=== PATIENT | male | born 1950 | race Caucasian/White ===

== ENCOUNTER 2024-10-09 11:35 | Inpatient (IN) | payer MEDICARE, MEDICAID, SELFPAY ==
[2024-10-09] VITALS (14 sets, daily range): BP systolic 74–132; BP diastolic 46–84; PULSE 57–99; RESP 13–96; TEMP 32.6–37.3; O2SAT 94–98; BMI 18.6
--- NOTE | 2024-10-09 12:09 | EKG_ITS ---
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
--- NOTE | 2024-10-09 12:10 | XR_ITS ---
Examination: AP chest single view Technique one AP portable upright chest single view INDICATIONS: Sepsis today. FINDINGS: Mild to moderate elevation left hemidiaphragm Mild prominence left ventricle Probable atelectasis in the left lower lobe Right lung clear Prominent thoracolumbar dextroscoliosis IMPRESSION: Recommend lateral view follow-up to best exclude pneumonia left base
--- NOTE | 2024-10-09 12:10 | PD.EDADULT ---
ED General RME/HPI General Chief complaint: Medical Clearance Stated complaint: Unable to thrive, No food, drink x 72 hours, PCP Time Seen by Provider: 10/09/24 11:40 Arrival date/time: 10/09/24 11:35 RME / HPI RME / HPI narrative: 74-year-old male patient, nonverbal, with profound mental retardation, seizure disorder, was brought in by caregiver for evaluation regarding less active than usual. According to caregiver, patient's been having worsening mentation, worsening appetite, and refusing to drink. This been ongoing for the last 1 week. Patient was noted to be unusually cold than usual also. No fever. No cough no diarrhea no vomiting noted. Related Data Home Medications ?Medication ?Instructions ?Recorded ?Confirmed buspirone 15 mg tablet 15 mg PO TID 05/04/22 05/04/22 calcium 600 mg (as 1 tab PO BID 05/04/22 05/04/22 carbonate)-vitamin D3 10 mcg (400 unit) tablet docusate sodium 250 mg capsule 250 mg PO BID 05/04/22 05/04/22 fluvoxamine 100 mg tablet 100 mg PO BID 05/04/22 05/04/22 levocetirizine 5 mg tablet 5 mg PO HS 05/04/22 05/04/22 olanzapine 10 mg tablet 10 mg PO QDAY 05/04/22 05/04/22 omeprazole 20 mg capsule,delayed 20 mg PO QDAY 05/04/22 05/04/22 release Allergies Allergy/AdvReac Type Severity Reaction Status Date / Time No Known Allergies Allergy Verified 12/06/23 16:31 Review of Systems Review of Systems Narrative Review of Systems: Review of system reviewed and within normal limits except mentioned in HPI ED Exam Narrative Physical exam: VITAL SIGNS: Reviewed. GENERAL APPEARANCE: Drowsy, does not follows commands, no acute distress, HEAD AND FACE: Non-traumatic. ENT: PERRL, pink conjunctivitis, eyelid no trauma, Mucous membrane moist. NECK: Supple, nontender, no nuchal rigidity. CHEST: No tenderness, no crepitus, no paradoxical movement, no retractions. LUNGS: Clear, well ventilated, symmetric, no rales, no wheezing, no ronchi, no stridor, good breath sounds bilaterally. HEART: Regular rate, regular rhythm, no murmur, no gallops. ABDOMEN: Soft, positive bowel sounds, nondistended, no guarding, nontender, no rebound, no masses, RECTAL: Deferred. GENITAL: Deferred. NEUROLOGICAL: Gross motor function intact sensory function intact, Appropriate for age. MUSCULOSKELETAL: low back nontender, full range of motion. EXTREMITIES: Nontender, full range of motion. SKIN: Color pink, dry, no rash, no lacerations, no abrasions, no contusions. LYMPHATICS: Deferred. Course Quality Measures none Orders Category Date Time Status COVID-19 Screening Questionnaire NOW Care 10/09/24 19:41 Active Slitter Processed Film STAT Care 10/09/24 12:09 Active Continuous Pulse Oximetry STAT Care 10/09/24 12:09 Completed Decision to Admit X1 Care 10/09/24 19:41 Active EKG (ED ONLY) *Do not use* NOW Care 10/09/24 12:09 Completed In and Out Catheter X1PRN Care 10/09/24 12:09 Completed Insert IV NOW Care 10/09/24 12:09 Active NPO STAT Care 10/09/24 12:09 Active Strict Intake and Output Routine Care 10/09/24 12:09 Ordered Consult to Gastroenterology Stat Cons 10/09/24 17:[address] head/brain wo con Stat Exams 10/09/24 12:14 Completed EKG (ED Only) Stat Exams 10/09/24 12:09 Draft XR chest 1V SEPSIS PROTOCOL Stat Exams 10/09/24 12:10 Completed B-Type Natriuretic Peptide Stat Lab 10/09/24 12:56 Completed Blood Culture (Lab) Stat Lab 10/09/24 12:50 Received CBC Stat Lab 10/09/24 12:56 Completed Comprehensive Metabolic Panel Stat Lab 10/09/24 12:56 Completed LDH (Lactate Dehydrogenase) Stat Lab 10/09/24 12:56 Completed Lactate (Lactic Acid) Stat Lab 10/09/24 12:56 Completed Lipase Stat Lab 10/09/24 12:56 Completed Magnesium Stat Lab 10/09/24 12:56 Completed Partial Thromboplastin Time Stat Lab 10/09/24 12:56 Completed Phosphorous Stat Lab 10/09/24 12:56 Completed Procalcitonin Stat Lab 10/09/24 12:56 Completed Prothrombin Time with INR Stat Lab 10/09/24 12:56 Completed Troponin I Stat Lab 10/09/24 12:56 Completed Urinalysis Stat Lab 10/09/24 14:08 Completed Urine Culture Stat Lab 10/09/24 14:08 Received Sodium Chloride 0.9% 1000 ml [Ns] 1,000 ml Med 10/09/24 12:10 Discontinued IV 999 mls/hr Sodium Chloride 0.9% 1000 ml [Ns] 1,000 ml Med 10/09/24 18:45 Discontinued IV 999 mls/hr cefTRIAXone/D5w 1gm IV premix [Rocephin/D5w 1gm IV Med 10/09/24 18:44 Discontinued premix] 50 ml IV X1 Oxygen Delivery NOW RT 10/09/24 12:09 Active Vital Signs Vital signs: Vital Signs Pulse Rate 63 10/09/24 11:58 Respiratory Rate 17 10/09/24 11:58 Blood Pressure 132/84 H 10/09/24 11:58 Pulse Oximetry (%) 98 10/09/24 11:58 Oxygen Delivery Method Room Air 10/09/24 11:58 [facility] Patient data External records reviewed:: None Clinical information provided by:: bilingual instructor Social determinants that could affect healthcare access:: none Patient has the following chronic illnesses:: Profound mental retardation How is presenting disease/condition affected by chronic disease/condition?: exacerbated by Evaluation data The following diagnostics were reviewed and interpreted by me:: lab results, radiology exam(s) and EKG tracing(s) Lab and/or radiology exams considered but not ordered:: None Interpretation Summary: EKG showed sinus rhythm, ventricular of 60 bpm, NC interval 154 MS, no ST segment elevation depression noted. Laboratory workup is significant for mild UTI. Chest x-ray showed possible pneumonia as read by radiologist. 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, the mass extends through the posterior margin of the orbit into the left parasellar region at the base of the brain, there is more bone destruction involving the medial wall of the left orbit on the current study Elective brain MRI follow-up pre and postcontrast would best assess full extent of this tumor mass Medications Medications considered but not ordered:: None Medication administrations:: Medication Administration History Discontinued Medications Sodium Chloride (Ns) 1,000 mls @ 999 mls/hr IV .Q1H1M ONE Stop: 10/09/24 13:10 Last Infusion: 11/14/24 18:45 Dose: Infused Documented By: Admin: 10/09/24 13:30 Dose: 999 mls/hr Documented By: JOSE G Ceftriaxone Sodium/Dextrose (Rocephin/D5w 1gm Iv Premix) 50 mls @ 100 mls/hr IV X1 ONE Stop: 10/09/24 19:13 Last Admin: 10/09/24 19:20 Dose: 100 mls/hr Documented By: SILVA Sodium Chloride (Ns) 1,000 mls @ 999 mls/hr IV .Q1H1M ONE Stop: 10/09/24 19:45 Last Admin: 10/09/24 19:20 Dose: 999 mls/hr Documented By: SILVA Ceftriaxone IV, IV fluids for hydration x 2 L. Consultations Consultation(s) initiated? (list below): Yes Consultation #1 (Physician, Specialty, Details): Spoke with Dr. Evans, GI specialist on-call, and thank you Dr. Evans Diagnosis Differential Diagnosis ED Complaint MDM: Failure to thrive, profound mental retardation, hypothermia, pneumonia, UTI Most likely diagnosis given after review of the tests above:: Failure to thrive, profound mental retardation, hypothermia, pneumonia, UTI Admission Indicated Admission indicated?: indicated Explain why admission is indicated or not indicated:: Patient is to be admitted for further management. Admission Request Was there a request for admission?: Yes Admission Attestation Admission request attestation: Discussed case with [Dr. Butler] from Hospitalist service regarding admission. Discussed patients ED course, exam findings, labs, and radiology results. The Hospitalist [agrees,] to accept the patient for admission. Disposition Plan Disposition Plan: Admit Medical Decision Making MDM Narrative MDM Narrative: 74-year-old male patient, nonverbal, with profound mental retardation, seizure disorder, was brought in by caregiver for evaluation regarding less active than usual. According to caregiver, patient's been having worsening mentation, worsening appetite, and refusing to drink. This been ongoing for the last 1 week. Patient was noted to be unusually cold than usual also. No fever. No cough no diarrhea no vomiting noted. Patient's workup all came back unremarkable except for mild UTI. Chest x-ray showed possible pneumonia as read by radiologist. Patient was also noted to be hypothermic, was placed on a Bear hugger, and warmed IV fluids. Spoke with Dr. Evans, GI specialist on-call, and told me that he will place PEG tube in the morning. As long as we have a consent problems [facility] Dr. Koenig from [facility] gave consent to do PEG tube placement, central line placement, and blood transfusion at 1650 pm Differential Diagnosis Differential Diagnosis: Failure to thrive, profound mental retardation, hypothermia, pneumonia, UTI Lab Data 10/09/24 12:56 10/09/24 12:56 Labs: Lab Results 10/09/24 10/09/24 Range/Units 12:56 14:08 WBC 8.1 (3.8-10.6) Thou/mm3 RBC 4.64 (4.50-5.90) Miln/mm3 Hgb 14.0 (13.5-16.0) g/dL Hct 39.7 L (41.0-53.0) % MCV 86 (80-100) fL MCH 30.2 (25.0-35.0) pg MCHC 35.3 (31.0-37.0) g/dl RDW Std Deviation 41.4 (35.1-43.9) fL Plt Count 161 (140-440) Thou/mm3 Neut % (Auto) 89 H (37-80) % Lymph % (Auto) 4 L (10-50) % [place] % (Auto) 6 (0-12) % Eos % (Auto) 1 (0-10) % Baso % (Auto) 0 (0-2.5) % Neut # (Auto) 7.2 (1.8-7.7) Thou/mm3 Lymph # (Auto) 0.3 L (1.0-4.8) Thou/mm3 [place] # (Auto) 0.5 (0.0-0.8) Thou/mm3 Eos # (Auto) 0.1 (0.0-0.5) Thou/mm3 Baso # (Auto) 0.0 (0.0-0.2) Thou/mm3 Immature Gran # (Auto) 0.01 H (0.00-0.00) Thou/mm3 Absolute Nucleated RBC 0.00 (0.00-0.00) Thou/mm3 Immature Gran % 0 (0-0) % Nucleated RBC % 0 (0) /100 WBC PT 10.8 (9.0-12.2) Seconds INR 1.0 (0.9-1.3) APTT 32.0 (22.0-36.0) Seconds Sodium 129 L (136-145) mMol/L Potassium 4.2 (3.4-5.1) mMol/L Chloride 94 L (98-107) mMol/L Carbon Dioxide 32.0 H (20.0-31.0) mMol/L Anion Gap 3 L (7-16) BUN 20 (9-23) mg/dL Creatinine 1.0 (0.6-1.3) mg/dL Estim Creat Clear Calc 37.1 L (>60) mL/min eGFR > 60 (60 - ) See Note BUN/Creatinine Ratio 20 (12-20) Ratio Glucose 128 H (74-106) mg/dL Calculated Osmolality 263 L (275-295) Lactic Acid 1.3 (0.4-2.0) mMol/L Calcium 10.7 H (8.3-10.6) mg/dL Corrected Calcium 10.7 H (8.5-10.1) mg/dL Phosphorus 4.6 (2.4-5.1) mg/dL Magnesium 2.3 (1.6-2.6) mg/dL Total Bilirubin 0.4 (0.3-1.2) mg/dL AST 38 H (0-34) U/L ALT 63 H (10-49) U/L Alkaline Phosphatase 147 H (46-116) U/L Lactate Dehydrogenase 176 (120-246) U/L Troponin I < 0.020 (0.0-0.045) ng/mL B-Natriuretic Peptide < 20 (0-100) pg/mL Total Protein 6.6 (5.7-8.2) gm/dL Albumin 4.3 (3.4-4.8) gm/dL Globulin 2.3 (2.3-3.5) gm/dL Albumin/Globulin Ratio 1.9 (1.2-2.2) Lipase 30 (12-53) U/L Procalcitonin 0.12 (0.0-0.49) ng/ml Ur Collection Type Clean Catch Urine Color Yellow (Lt Yel-Yel) Urine Clarity Clear (Clear/Hazy) Urine pH 6.5 (5.0-7.0) Ur Specific [employer] 1.014 (1.001-1.035) Urine Protein Negative (Neg - Trace) Urine Glucose (UA) Negative (Negative) Urine Ketones Negative (Negative) Urine Blood Negative (Negative) Urine Nitrite Negative (Negative) Urine Bilirubin Negative (Negative) Urine Urobilinogen (Auto) Negative (0.0-1.0) mg/dL Ur Leukocyte Esterase Positive (Negative) Urine RBC 7 H (0-3) /hpf Urine WBC 6 H (0-5) /hpf Ur Squamous Epith Cells 0 (0-5) /hpf Urine Bacteria None (None) Hyaline Casts < 1 (0-1) /hpf Discharge Plan Plan Patient Disposition: HOME (Self Care) Disposition Comment: Stable Prescriptions/Referrals Prescriptions/Med Rec: No Action olanzapine 10 mg tablet 10 mg PO QDAY Patient Comments: TAKE ONE TABLET BY MOUTH DAILY AT 0800 fluvoxamine 100 mg tablet 100 mg PO BID omeprazole 20 mg capsule,delayed release(DR/EC) 20 mg PO QDAY docusate sodium 250 mg capsule 250 mg PO BID buspirone 15 mg tablet 15 mg PO TID calcium carbonate-vitamin D3 600 mg-10 mcg (400 unit) tablet 1 tab PO BID levocetirizine 5 mg tablet 5 mg PO HS Referrals: Dionte No MD [Primary Care Provider] - In 1 week Problem List Clinical Impression: Adult failure to thrive Patient/Caregiver Discharge Instructions Print Language: Kiswahili Stand Alone Forms: [facility] Award Info., Patient Portal Info Letter
--- NOTE | 2024-10-09 12:14 | XR_ITS ---
Examination: CT brain head without contrast. 2-D sagittal coronal reconstructions Date and time of exam:October 09, 2024 1331 hours Comparison December 06, 2023 INDICATIONS: Onset altered mental status CTDI: vol (mGy):51.4 DLP: (mGycm):1097 Technique: Multiple CT axial sections of the brain have been obtained, 5 mm slice thickness. Contrast has not been administered. 2-D sagittal, coronal reconstructions have been obtained Low dose protocols were performed. One or more of the following dose reduction techniques were used; automated exposure control, adjustment of the mA and/or KV according to patient size, use of iterative reconstruction technique. Findings: Stable ventricular enlargement, especially the occipital horns, compared with December 06, 2023 Intra-axial or extra-axial hemorrhage density is not seen. 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
[2024-10-09 13:03] LABS: Lactate (Lactic Acid) 1.3 mMol/L (0.4-2.0)
[2024-10-09 13:05] LABS: Basophils % (Auto) 0 % (0-2.5); Eosinophils # (Auto) 0.1 Thou/mm3 (0.0-0.5); Eosinophils % (Auto) 1 % (0-10); Hematocrit 39.7 % (41.0-53.0); Immature Granulocytes % (Auto) 0 % (0-0); Immature Granulocytes Auto 0.01 Thou/mm3 (0.00-0.00); Lymphocytes # (Auto) 0.3 Thou/mm3 (1.0-4.8); Lymphocytes % (Auto) 4 % (10-50); Mean Corpuscular HGB Conc 35.3 g/dl (31.0-37.0); Mean Corpuscular Hemoglobin 30.2 pg (25.0-35.0); Mean Corpuscular Volume 86 fL (80-100); Monocytes # (Auto) 0.5 Thou/mm3 (0.0-0.8); Monocytes % (Auto) 6 % (0-12); Neutrophils # (Auto) 7.2 Thou/mm3 (1.8-7.7); Neutrophils % (Auto) 89 % (37-80); Nucleated Red Blood Cell % 0 /100 WBC (0); Platelet Count 161 Thou/mm3 (140-440); RDW Standard Deviation 41.4 fL (35.1-43.9); Red Blood Count 4.64 Miln/mm3 (4.50-5.90); White Blood Count 8.1 Thou/mm3 (3.8-10.6)
[2024-10-09 13:24] LABS: Prothrombin Time 10.8 Seconds (9.0-12.2)
[2024-10-09 13:28] LABS: B-Type Natriuretic Peptide < 20 pg/mL (0-100)
[2024-10-09] MEDS: SODIUM CHLORIDE 0.9% 1000 ML 1,000 ML 999 ML IV ×2 (13:30→19:20)
[2024-10-09 13:32] LABS: Alanine Aminotransferase 63 U/L (10-49); Albumin, Serum 4.3 gm/dL (3.4-4.8); Albumin/Globulin Ratio 1.9 (1.2-2.2); Alkaline Phosphatase 147 U/L (46-116); Anion Gap 3 (7-16); Aspartate Amino Transferase 38 U/L (0-34); BUN/Creatinine Ratio 20 Ratio (12-20); Bilirubin,Total 0.4 mg/dL (0.3-1.2); Blood Urea Nitrogen 20 mg/dL (9-23); Calcium 10.7 mg/dL (8.3-10.6); Calcium (Corrected) 10.7 mg/dL (8.5-10.1); Chloride 94 mMol/L (98-107); Estimated Creatinine Clearance 37.1 mL/min (>60); Globulin 2.3 gm/dL (2.3-3.5); Glucose 128 mg/dL (74-106); LDH (Lactate Dehydrogenase) 176 U/L (120-246); Lipase 30 U/L (12-53); Magnesium 2.3 mg/dL (1.6-2.6); Osmolality,Calculated 263 (275-295); Phosphorous 4.6 mg/dL (2.4-5.1); Potassium 4.2 mMol/L (3.4-5.1); Procalcitonin 0.12 ng/ml (0.0-0.49); Sodium 129 mMol/L (136-145); Total Protein 6.6 gm/dL (5.7-8.2); Troponin I < 0.020 ng/mL (0.0-0.045); eGFR > 60 See Note
[2024-10-09 14:48] LABS: Collection Type, Urine Clean Catch; Squamous Epithelial Cell,Urine 0 /hpf (0-5)
[2024-10-09 14:58] LABS: Bilirubin,Urine Negative (Negative); Blood,Urine Negative (Negative); Clarity,Urine Clear (Clear/Hazy); Color,Urine Yellow (Lt Yel-Yel); Glucose, Urine Negative (Negative); Hyaline Casts,Urine < 1 /hpf (0-1); Ketones,Urine Negative (Negative); Leukocyte Esterase,Urine Positive (Negative); Nitrite,Urine Negative (Negative); PH,Urine 6.5 (5.0-7.0); Protein,Urine Negative (Neg - Trace); RBC,Urine 7 /hpf (0-3); Specific Gravity,Urine 1.014 (1.001-1.035); Urobilinogen,Urine Negative mg/dL (0.0-1.0); WBC,Urine 6 /hpf (0-5)
[2024-10-09] MEDS: cefTRIAXone/D5w 1gm IV premix 50 ML IV (19:20)
--- NOTE | 2024-10-09 20:41 | PD.RESHP ---
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 intake and feeling cool to touch. He comes from [facility] for which he has been a resident of for over 20 years. Real Estate Valuer was at bedside who helped provide information, Tfifanie Garza ([phone]). At baseline, patient is unable to communicate his needs. For some time he has had decreased PO intake, but has progressed significantly starting Sunday. Real Estate Valuer states that he has become weaker over time, stating that he is unable to walk which she was able to prior and has had a 10 pound weight loss within the last year. 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 Dr. Koenig at [facility] who gave verbal consent for PEG tube placement, and will need to acquire faxed consent prior to procedure. Dr. Evans is aware and plans to place tube in AM. ED course: Temp 90.6 ?F, improved with Juan Hugger and warm IV fluids to 92.5 ?F. Otherwise, vital stable. CBC unremarkable, Na 129, mildly elevated LFTs, troponin (-), BNP (-), lactic acid (-), Pro-Herman (-), UA unremarkable CXR: Possible atelectasis of left lower lobe CT head: Stable ventricular enlargement, soft tissue tumor in left orbit extending into left parasellar region at base of brain In ED given 2 L warm NS, ceftriaxone x 1 PMHx: seizures, intellectual disability Medications: Pending med rec SHx: N/A Review of Systems Review of Systems Systems Reviewed: All systems reviewed, normal except as documented Exam Vital Signs Temp Pulse Resp BP Pulse Ox O2 Del Method 91.5 F L 64 13 99/56 L 98 Room Air 10/09/24 19:37 10/09/24 19:47 10/09/24 19:47 10/09/24 19:37 10/09/24 19:37 10/09/24 19:37 Narrative Exam General: nonverbal, laying in bed and does not appear to be in distress HEENT: soft tissue tumor in left orbit Cardiovascular: regular rate and rhythm, S1/S2 present, no murmurs appreciated Pulmonary: clear to auscultation bilaterally, no rales/rhonchi/wheezes Abdominal: soft, non-tender, non-distended, no rebound/guarding, normal bowel sounds present Musculoskeletal: normal ROM, no peripheral edema Skin: cool to touch, dry, intact, no rashes Neuro: CN II-XII intact, no focal deficits Results: Labs 10/12/24 05:42 10/12/24 05:42 Labs: Short CBC 10/09/24 Range/Units 12:56 WBC 8.1 (3.8-10.6) Thou/mm3 Hgb 14.0 (13.5-16.0) g/dL Hct 39.7 L (41.0-53.0) % Plt Count 161 (140-440) Thou/mm3 BMP 10/09/24 12:56 Sodium 129 L Potassium 4.2 Chloride 94 L Carbon Dioxide 32.0 H BUN 20 Creatinine 1.0 Glucose 128 H Calcium 10.7 H Cardiac Enzymes 10/09/24 Range/Units 12:56 Troponin I < 0.020 (0.0-0.045) ng/mL Liver Function 10/09/24 Range/Units 12:56 Total Bilirubin 0.4 (0.3-1.2) mg/dL AST 38 H (0-34) U/L ALT 63 H (10-49) U/L Alkaline Phosphatase 147 H (46-116) U/L Albumin 4.3 (3.4-4.8) gm/dL Urine 10/09/24 Range/Units 14:08 Urine Color Yellow (Lt Yel-Yel) Urine Clarity Clear (Clear/Hazy) Urine pH 6.5 (5.0-7.0) Ur Specific [place] 1.014 (1.001-1.035) Urine Protein Negative (Neg - Trace) Urine Glucose (UA) Negative (Negative) Quality Measures Quality Measures none Advance care planning discussed with:: legal surragate Medications Home Medications and Allergies Home Medications ?Medication ?Instructions ?Recorded ?Confirmed ?Type buspirone 15 mg tablet 15 mg PO TID 05/04/22 05/04/22 History calcium 600 mg (as 1 tab PO BID 05/04/22 05/04/22 History carbonate)-vitamin D3 10 mcg (400 unit) tablet docusate sodium 250 mg capsule 250 mg PO BID 05/04/22 05/04/22 History fluvoxamine 100 mg tablet 100 mg PO BID 05/04/22 05/04/22 History levocetirizine 5 mg tablet 5 mg PO HS 05/04/22 05/04/22 History olanzapine 10 mg tablet 10 mg PO QDAY 05/04/22 05/04/22 History omeprazole 20 mg capsule,delayed 20 mg PO QDAY 05/04/22 10/10/24 History release fluvoxamine 100 mg tablet mg 10/10/24 History melatonin 5 mg tablet 5 mg PO HS PRN Insomnia 10/10/24 10/10/24 History multivitamin with minerals-iron ml PO 10/10/24 History fumarate 9 mg iron/15 mL oral liquid (Multi Vitamin) omeprazole 20 mg capsule,delayed mg 10/10/24 History release polyethylene glycol 3350 17 g 10/10/24 History gram/dose oral powder polyethylene glycol 3350 17 g 10/10/24 History gram/dose oral powder polyethylene glycol 3350 17 g 10/10/24 History gram/dose oral powder (ClearLax) triamcinolone acetonide 0.1 % topical 10/10/24 History topical ointment Allergies Allergy/AdvReac Type Severity Reaction Status Date / Time No Known Allergies Allergy Verified 12/06/23 16:31 Visit Medications Acetaminophen (Acetaminophen Supp 650 Mg Supp) 650 mg KS Q6HR PRN PRN Reason: Fever > 100.4 Stop: 11/08/24 20:34 Heparin Sodium (Porcine) (Heparin Sod Inj 5000 Unit/Ml Vial) 5,000 unit SC Q12HR PHYLICIA Stop: 10/23/24 20:59 Sodium Chloride (Ns) 1,000 mls @ 75 mls/hr IV .[id number] PHYLICIA Stop: 10/10/24 20:44 Piperacillin/Tazobactam/Dextrose (Zosyn) 3.375 gm in 50 mls @ 100 mls/hr IV Q8HR PHYLICIA Stop: 10/16/24 20:39 Ondansetron HCl (Ondansetron Inj 2 Mg/Ml Inj 2 Ml) 4 mg IV Q6H PRN; Protocol PRN Reason: NAUSEA OR VOMITING Stop: 11/08/24 20:36 Pantoprazole Sodium (Pantoprazole Inj 40 Mg Vial) 40 mg IVP Q12HR PHYLICIA Stop: 11/08/24 20:59 Discontinued Medications Sodium Chloride (Ns) 1,000 mls @ 999 mls/hr IV .Q1H1M ONE Stop: 10/09/24 13:10 Last Infusion: 10/09/24 18:45 Dose: Infused Ceftriaxone Sodium/Dextrose (Rocephin/D5w 1gm Iv Premix) 50 mls @ 100 mls/hr IV X1 ONE Stop: 10/09/24 19:13 Last Infusion: 10/09/24 20:36 Dose: Infused Sodium Chloride (Ns) 1,000 mls @ 999 mls/hr IV .Q1H1M ONE Stop: 10/09/24 19:45 Last Admin: 10/09/24 19:20 Dose: 999 mls/hr Assessment & Plan Plan 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 #Failure to thrive #Hypothermia Presents with significantly decreased p.o. intake for the last week. Has become less interactive per sprayer insecticide and is cool to touch. Difficult to ascertain etiologies given patient's inability to communicate. Symptoms likely due to significantly decreased p.o. intake, unlikely infectious etiology but cannot definitely be ruled out. Consider hypothyroidism, follow-up TSH levels. ? Juan hugger ? Warm IV fluids ? Continuous rectal thermometer ? Monitor vital signs ? Consider ICU consult if no improvement ? Planned PEG tube placement tomorrow morning ? Follow-up blood and urine cultures # ? Pneumonia Presents nonseptic. CXR read recommended lateral view follow-up to best exclude pneumonia left base, but unable as patient cannot be transported. ? Zosyn 3.375 g IV every 8 hours ? De-escalate as deemed necessary #Hypotonic hyponatremia ? IVF as above Hospital management: Disposition: 2-3 hospital nights Fluids: warmed IVF Diet: NPO, pending PEG tube placement Lines: peripheral DVT prophylaxis: heparin SC BID GI prophylaxis: pantoprazole IV BID CODE STATUS: full code ----- Plan discussed with attending physician Dr. Ross Salazar MD PGY-1 Internal Medicine Attending Provider Attestation/Addendum 74-year-old male patient with severe mental impairment, seizures was admitted for failure to thrive. The patient is noted to be hypothermic in the ER. He has hyponatremia. Patient is conserved. The patient will undergo PEG tube placement by Dr. Evans. He was started on IV antibiotics for possible pneumonia. Discussed with housestaff
[2024-10-09] MEDS: HEPARIN SOD INJ 5000 UNIT/ML VIAL SC (20:51)
[2024-10-09] MEDS: PANTOPRAZOLE INJ 40 MG VIAL IVP (20:51)
[2024-10-09] MEDS: PIPER/TAZO 3.375 GM 3.375 GM/50 ML BAG IV (20:51)
[2024-10-09] MEDS: SODIUM CHLORIDE 0.9% 1000 ML 1,000 ML 75 ML IV (20:52)
--- NOTE | 2024-10-09 21:15 | XR_ITS ---
Examination: AP chest single view Technique: AP portable supine chest single view Exam date and time: October 09, [id number] hrs. Comparison May 04, 2022 Indications: Failure to thrive Findings: Prominent pneumonia left base Normal heart size No pulmonary edema Intact osseous structures Impression: Significant pneumonia left base
--- NOTE | 2024-10-09 22:02 | ESCONSULT_ITS ---
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 cc:: cc: Darrian Hawkins MD Review of Systems Review of Systems ROS Unobtainable: unobtainable due to medical condition Meds Home Medications and Allergies Home Medications ?Medication ?Instructions ?Recorded ?Confirmed ?Type buspirone 15 mg tablet 15 mg PO TID 05/04/22 05/04/22 History calcium 600 mg (as 1 tab PO BID 05/04/22 05/04/22 History carbonate)-vitamin D3 10 mcg (400 unit) tablet docusate sodium 250 mg capsule 250 mg PO BID 05/04/22 05/04/22 History fluvoxamine 100 mg tablet 100 mg PO BID 05/04/22 05/04/22 History levocetirizine 5 mg tablet 5 mg PO HS 05/04/22 05/04/22 History olanzapine 10 mg tablet 10 mg PO QDAY 05/04/22 05/04/22 History omeprazole 20 mg capsule,delayed 20 mg PO QDAY 05/04/22 05/04/22 History release Allergies Allergy/AdvReac Type Severity Reaction Status Date / Time No Known Allergies Allergy Verified 12/06/23 16:31 Exam Vital Signs Temp Pulse Resp BP Pulse Ox O2 Del Method 91.5 F L 64 13 99/56 L 98 Room Air 10/09/24 19:37 10/09/24 19:47 10/09/24 19:47 10/09/24 19:37 10/09/24 19:37 10/09/24 19:37 Constitutional Comments: Chronically ill-appearing Routine Respiratory Exam Comments: Soft nontender. Results Labs 10/09/24 12:56 10/09/24 12:56 Labs: Short CBC 10/09/24 Range/Units 12:56 WBC 8.1 (3.8-10.6) Thou/mm3 Hgb 14.0 (13.5-16.0) g/dL Hct 39.7 L (41.0-53.0) % Plt Count 161 (140-440) Thou/mm3 BMP 10/09/24 12:56 Sodium 129 L Potassium 4.2 Chloride 94 L Carbon Dioxide 32.0 H BUN 20 Creatinine 1.0 Glucose 128 H Calcium 10.7 H Cardiac Enzymes 10/09/24 Range/Units 12:56 Troponin I < 0.020 (0.0-0.045) ng/mL Liver Function 10/09/24 Range/Units 12:56 Total Bilirubin 0.4 (0.3-1.2) mg/dL AST 38 H (0-34) U/L ALT 63 H (10-49) U/L Alkaline Phosphatase 147 H (46-116) U/L Albumin 4.3 (3.4-4.8) gm/dL Urine 10/09/24 Range/Units 14:08 Urine Color Yellow (Lt Yel-Yel) Urine Clarity Clear (Clear/Hazy) Urine pH 6.5 (5.0-7.0) Ur Specific [place] 1.014 (1.001-1.035) Urine Protein Negative (Neg - Trace) Urine Glucose (UA) Negative (Negative) Assessment and Plan Additional Assessment & Plan Additional Plan: # Failure to thrive Patient not eating at all as per the tube cleaning operator Appropriate consent will be obtained from the appropriate authorities for percutaneous endoscopic gastrostomy tube insertion via fiberoptic esophagogastroduodenoscopy under intravenous moderate sedation scheduled for tomorrow N.p.o. 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
--- NOTE | 2024-10-09 23:00 | PC.NURSE ---
SHEBA FLORES REMOVED AND FLUIDS REMOVED FROM ROOMER, PT'S RECTAL TEMP IS 99.1.
[2024-10-10] VITALS (58 sets, daily range): BP systolic 99–157; BP diastolic 65–135; PULSE 52–111; RESP 0–95; TEMP 35.3–37.1; O2SAT 92–99; BMI 17.9
[2024-10-10] MEDS: PIPER/TAZO 3.375 GM 3.375 GM/50 ML BAG IV (05:24)
[2024-10-10 05:35] LABS: Basophils % (Auto) 0 % (0-2.5); Eosinophils % (Auto) 0 % (0-10); Hematocrit 33.9 % (41.0-53.0); Hemoglobin 11.8 g/dL (13.5-16.0); Immature Granulocytes % (Auto) 0 % (0-0); Immature Granulocytes Auto 0.05 Thou/mm3 (0.00-0.00); Lymphocytes # (Auto) 0.2 Thou/mm3 (1.0-4.8); Lymphocytes % (Auto) 2 % (10-50); Mean Corpuscular HGB Conc 34.8 g/dl (31.0-37.0); Mean Corpuscular Hemoglobin 30.1 pg (25.0-35.0); Mean Corpuscular Volume 87 fL (80-100); Monocytes # (Auto) 0.5 Thou/mm3 (0.0-0.8); Monocytes % (Auto) 3 % (0-12); Neutrophils # (Auto) 13.1 Thou/mm3 (1.8-7.7); Neutrophils % (Auto) 94 % (37-80); Nucleated Red Blood Cell % 0 /100 WBC (0); Platelet Count 148 Thou/mm3 (140-440); RDW Standard Deviation 42.9 fL (35.1-43.9); Red Blood Count 3.92 Miln/mm3 (4.50-5.90); White Blood Count 13.9 Thou/mm3 (3.8-10.6)
[2024-10-10 06:13] LABS: Alanine Aminotransferase 52 U/L (10-49); Albumin, Serum 3.6 gm/dL (3.4-4.8); Albumin/Globulin Ratio 1.9 (1.2-2.2); Alkaline Phosphatase 122 U/L (46-116); Anion Gap 6 (7-16); Aspartate Amino Transferase 31 U/L (0-34); BUN/Creatinine Ratio 18 Ratio (12-20); Bilirubin,Total 0.4 mg/dL (0.3-1.2); Blood Urea Nitrogen 16 mg/dL (9-23); Calcium 9.2 mg/dL (8.3-10.6); Calcium (Corrected) 9.5 mg/dL (8.5-10.1); Carbon Dioxide 28.2 mMol/L (20.0-31.0); Chloride 103 mMol/L (98-107); Creatinine (Component) 0.9 mg/dL (0.6-1.3); Estimated Creatinine Clearance 39.6 mL/min (>60); Globulin 1.9 gm/dL (2.3-3.5); Glucose 75 mg/dL (74-106); Magnesium 1.8 mg/dL (1.6-2.6); Osmolality,Calculated 274 (275-295); Phosphorous 4.1 mg/dL (2.4-5.1); Potassium 4.1 mMol/L (3.4-5.1); Sodium 137 mMol/L (136-145); Thyroid Stimulating Hormone 0.94 uIU/mL (0.55-4.78); Total Protein 5.5 gm/dL (5.7-8.2); eGFR > 60 See Note
[2024-10-10] MEDS: HEPARIN SOD INJ 5000 UNIT/ML VIAL SC ×2 (08:43→21:05)
[2024-10-10] MEDS: PANTOPRAZOLE INJ 40 MG VIAL IVP ×2 (08:43→21:00)
--- NOTE | 2024-10-10 08:52 | PC.SS ---
Update: Patient is a possible candidate for PEG placement.
[2024-10-10] MEDS: cefTRIAXone/D5w 1gm IV premix 50 ML IV (09:56)
[2024-10-10] MEDS: Magnesium Sulfate 4 GM Ivpb 4 GM/50 ML BAG IV (09:57)
[2024-10-10] MEDS: SODIUM CHLORIDE 0.9% 1000 ML 1,000 ML 75 ML IV (10:59)
[2024-10-10] MEDS: AZITHROMYCIN INJ 500 MG in SODIUM CHLORIDE 0.9% 250 ML 250 ML 250 MG IV (11:02)
--- NOTE | 2024-10-10 11:59 | PC.SS ---
Patient is devel. delayed and non verbal. He is wheelchair bound and resides at [facility]. He has 24 hour care staffing. He has a sister in law that is involved but does not make any decisions. SS spoke to [employer] [place] senator, Tiffanie Galvan, who states [facility] makes all major healthcare decisions. Patient is total care with all ADL's. He is blind, needs assistance with all transfers, non verbal and staff state he has a tendency to pinch himself. [facility] transports him with thier own van with a lift. Patient pending peg tube surgery. [facility] u[employer] senator was asking for a peg tube with no tubes hanging out, to prevent patient from pulling. SS relayed to nursing. Patient p.c.p. is Dr. No @ [facility]. Last appt. was on the 30 of September. Patient to d/c back to [facility].
--- NOTE | 2024-10-10 12:38 | ESPR_ITS ---
<Statement entered by Lindy Flores MD - 10/10/24 16:53> Senior Resident Attestation: I supervised/discussed management plan with resident physician Dr. Alcaraz, and was involved in the care of this patient. I personally saw and examined the patient and discussed the assessment and plan with the entire medicine team, including my attending. I agree with the assessment and plan as documented. Patient's care was discussed with attending physician, Dr. Shabbir Flores MD PGY-3 Documentation for date of: 10/10/24 Subjective Subjective Interval history: Patient seen at bedside. Consent obtained from conservator for PEG tube placement tonight. Patient is scheduled for PEG tube placement. Patient is nonverbal, sleeping comfortably in bed, temperature within normal limit. Will continue to monitor patient. Exam Vital Signs Temp Pulse Resp BP Pulse Ox O2 Del Method 96.1 F L 87 18 107/82 96 Room Air 10/10/24 08:00 10/10/24 08:00 10/10/24 08:00 10/10/24 08:00 10/10/24 08:00 10/10/24 08:00 Narrative Exam General: nonverbal, laying in bed and does not appear to be in distress HEENT: soft tissue tumor in left orbit Cardiovascular: regular rate and rhythm, S1/S2 present, no murmurs appreciated Pulmonary: clear to auscultation bilaterally, no rales/rhonchi/wheezes Abdominal: soft, non-tender, non-distended, no rebound/guarding, normal bowel sounds present Musculoskeletal: normal ROM, no peripheral edema Skin: cool to touch, dry, intact, no rashes Neuro: CN II-XII intact, no focal deficits, responds to touch. Objective Labs 10/11/24 05:39 10/11/24 05:39 Labs: Laboratory Results - last 24 hr 10/09/24 10/09/24 10/10/24 12:56 14:08 05:10 WBC 8.1 13.9 H D RBC 4.64 3.92 L Hgb 14.0 11.8 L D Hct 39.7 L 33.9 L MCV 86 87 MCH 30.2 30.1 MCHC 35.3 34.8 RDW Std Deviation 41.4 42.9 Plt Count 161 148 Neut % (Auto) 89 H 94 H Lymph % (Auto) 4 L 2 L [place] % (Auto) 6 3 Eos % (Auto) 1 0 Baso % (Auto) 0 0 Neut # (Auto) 7.2 13.1 H Lymph # (Auto) 0.3 L 0.2 L [place] # (Auto) 0.5 0.5 Eos # (Auto) 0.1 0.0 Baso # (Auto) 0.0 0.0 Immature Gran # (Auto) 0.01 H 0.05 H Absolute Nucleated RBC 0.00 0.00 Immature Gran % 0 0 Nucleated RBC % 0 0 PT 10.8 INR 1.0 APTT 32.0 Sodium 129 L 137 Potassium 4.2 4.1 Chloride 94 L 103 Carbon Dioxide 32.0 H 28.2 Anion Gap 3 L 6 L BUN 20 16 Creatinine 1.0 0.9 Estim Creat Clear Calc 37.1 L 39.6 L eGFR > 60 > 60 BUN/Creatinine Ratio 20 18 Glucose 128 H 75 D Calculated Osmolality 263 L 274 L Lactic Acid 1.3 Calcium 10.7 H 9.2 D Corrected Calcium 10.7 H 9.5 Phosphorus 4.6 4.1 Magnesium 2.3 1.8 Total Bilirubin 0.4 0.4 AST 38 H 31 ALT 63 H 52 H Alkaline Phosphatase 147 H 122 H D Lactate Dehydrogenase 176 Troponin I < 0.020 B-Natriuretic Peptide < 20 Total Protein 6.6 5.5 L Albumin 4.3 3.6 D Globulin 2.3 1.9 L Albumin/Globulin Ratio 1.9 1.9 Lipase 30 Procalcitonin 0.12 TSH 0.94 Ur Collection Type Clean Catch Urine Color Yellow Urine Clarity Clear Urine pH 6.5 Ur Specific [place] 1.014 Urine Protein Negative Urine Glucose (UA) Negative Urine Ketones Negative Urine Blood Negative Urine Nitrite Negative Urine Bilirubin Negative Urine Urobilinogen (Auto) Negative Ur Leukocyte Esterase Positive Urine RBC 7 H Urine WBC 6 H Ur Squamous Epith Cells 0 Urine Bacteria None Hyaline Casts < 1 Quality Measures Quality Measures none Advance care planning discussed with:: legal surragate Assessment & Plan Assessment Current Active Medications: Generic Name Dose Route Start Last Admin Trade Name Freq PRN Reason Stop Dose Admin Acetaminophen 650 mg 10/09/24 20:35 Acetaminophen Supp 650 Mg Supp TX 11/08/24 20:34 Q6HR PRN Fever > 100.4 Heparin Sodium (Porcine) 5,000 unit 10/09/24 21:00 10/10/24 08:43 Heparin Sod Inj 5000 Unit/Ml Vial SC 10/23/24 20:59 5,000 unit Q12HR PHYLICIA Administration Sodium Chloride 1,000 mls @ 75 mls/hr 10/09/24 20:45 10/10/24 10:59 Ns IV 10/10/24 20:44 75 mls/hr .[id number] PHYLICIA Administration Ceftriaxone Sodium/Dextrose 50 mls @ 100 mls/hr 10/10/24 08:55 10/10/24 09:56 Rocephin/D5w 1gm Iv Premix IV 10/17/24 08:54 100 mls/hr QDAY PHYLICIA Administration Azithromycin 250 mg/ Sodium 250 mls @ 250 mls/hr 10/11/24 09:00 Chloride IV 10/15/24 08:59 QDAY PHYLICIA Magnesium Sulfate 4 gm in 50 mls @ 12.5 mls/hr 10/10/24 08:58 10/10/24 09:57 Magnesium Sulfate Ivpb IV 10/10/24 12:57 12.5 mls/hr X1 ONE Administration Ondansetron HCl 4 mg 10/09/24 20:37 Ondansetron Inj 2 Mg/Ml Inj 2 Ml IV 11/08/24 20:36 Q6H PRN NAUSEA OR VOMITING Protocol Pantoprazole Sodium 40 mg 10/09/24 21:00 10/10/24 08:43 Pantoprazole Inj 40 Mg Vial IVP 11/08/24 20:59 40 mg Q12HR PHYLICIA Administration Pharmacy Consult 1 each 10/10/24 03:48 Pharmacy To Consult Pneumovacc XX 11/09/24 03:47 PRN PRN CONSULT Plan Assessment and Plan: Summary: 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 #Failure to thrive #Protein calorie malnutrition #Hypoproteinemia #Hypothermia # Left orbit soft tissue mass Presents with significantly decreased p.o. intake for the last week. Has become less interactive per inspection engineer and is cool to touch. Difficult to ascertain etiologies given patient's inability to communicate. Symptoms likely due to significantly decreased p.o. intake, unlikely infectious etiology but cannot definitely be ruled out. TSH 0.94. Patient was given 2 L NS school coordinator ED, was in [facility], eventually patient's temperature improved to within normal limits BMI 17.9 Plan: - Consulted GI, patient scheduled for PEG tube placement today - Referral to dietitian ? Monitor vital signs # Sepsis # Pneumonia, CAP vs aspiration -Patient hypothermic, WBC count 13.9, SIRS 2/4 -Patient was given ceftriaxone in ED, was given Zosyn later -CXR read recommended lateral view follow-up to best exclude pneumonia left base, but unable as patient cannot be transported. -Continue ceftriaxone and azithromycin (10/10- ?Follow-up blood and urine cultures # Hypoosmolar hyponatremia, resolved DVT prophylaxis: Heparin every 12 GI prophylaxis: IV Protonix twice daily Diet: N.p.o. Lines: Peripheral IV Code status: Full code Case discussed with Attending Dr. Shea and Dr. Flores PGY3. Zulma Alcaraz PGY1 Attending Provider Attestation/Addendum I have discussed and was present for the essential components of the history, physical examination, diagnosis, and treatment plan with the resident. I agree with the patient's care as documented by the resident and amended herein by me. Leon Shea DO. Although this document has been carefully reviewed, there may still be some phonetic and other typographical errors. These errors are purely grammatical due to imperfections in the software program and should not be construed in any way to compromise the substance of the patient's medical care during this visit.
--- NOTE | 2024-10-10 13:09 | PC.SS ---
QUILTING MACHINE OPERATOR contacted [facility] worker of the day, Debora Neville [phone]; to update on PEG tube placement for the patient. QUILTING MACHINE OPERATOR requested confirmation on which [facility] physician would susanne authorization for procedure. [facility] staff informed that chart review indicates that Dr. Koenig granted verbal permission for PEG tube placement. [facility] staff person to conduct confirmation and will contact QUILTING MACHINE OPERATOR. [facility] staff provided attending contact number if peer to peer discussion required.
--- NOTE | 2024-10-10 14:15 | PC.NURSE ---
@[address] AVILEZ FROM [facility] IN ORDER TO GET CONSENT FOR PEG TUBE PLACEMENT, LEFT MESSAGE TO CALL ME BACK
--- NOTE | 2024-10-10 14:25 | PC.SS ---
SCHOOL LEADER informed that Dr. Shea obtained consent from Dr. Koenig authorizing PEG tube placement for the patient.
--- NOTE | 2024-10-10 15:37 | PC.DIETICIAN ---
Nutrition recommendations: Patient is at significant risk for refeeding syndrome. 1. Jevity 1.5 at 10 ml/hr x 24 hrs (do not advance). If no IV fluids, water flushes 30 ml/hr (or per MD). 2. Thiamine 100mg/day for 7 days; provide first dose at least 30 minutes before starting nutrition. 3. Multivitamins/Minerals. 4. Daily labs for P, K, and Mg; replace as needed. If no electrolytes disturbances after 24 hrs, advance 10 ml every 12 hrs to goal rate of 40 ml/hr x 24 hrs. Continue water flushes 30 ml/hr (or per MD).
[2024-10-10] MEDS: THIAMINE INJ 100 MG/ML VIAL 2 ML 250 MG IV (17:46)
--- NOTE | 2024-10-10 19:51 | PC.NURSE ---
Contacted hospitalist regarding patient's temp of 95.8. Was also contacted by OR team regarding patient's temp. Was unable to obtain a rectal temp and MD was notified. A warming blanket (bear hugger) was put on the patient to help his temp.
[2024-10-10] MEDS: MULTIVITAMIN 15 ML UDC GT (21:01)
--- NOTE | 2024-10-10 23:20 | PC.NURSE ---
Code rapid was initiated on patient due to having a rectal temp of 90.0. Blood sugar was also was obtained (69). Patient is non-verbal.
[2024-10-10] MEDS: DEXTROSE 50%-WATER INJ 50 ML SYRINGE IV ×2 (23:24)
--- NOTE | 2024-10-10 23:31 | XR_ITS ---
Examination: Abdomen AP single view Technique: AP portable supine abdomen, single view Exam date and time: October 10, 2024 1154 hrs. Indications: Sepsis, abdominal pain today Findings: Gastrostomy tube overlies the stomach Significant pneumonia left base Mild to moderate colonic ileus No obstruction The right abdomen is not entirely included on this film Rectal tube Impression: Significant left base pneumonia Mild to moderate colonic ileus
--- NOTE | 2024-10-10 23:43 | PD.RESEVENT ---
Documentation for date of: 10/10/24 Event Note Event Note: Rapid Response Event Note Called at approximately 11:20 PM Rapid Response called for hypothermia of rectal temperature of 90.0 F s/p PEG tube placement. Airway not compromised, breathing rate of 13, SpO2 of 95 RA. Non-verbal. Pulses intact. Vitals during rapid: T 95.6, BP 99/72, HR 56, RR 13, SpO2 95 RA Intervention: CBC, BMP, lactic Acid, NS 1 Liter bolus/WARM, bear hugger, KUB, and warm blankets. Sepsis [place]. [facility] [place] Temp checks Q4 hours. - The patient's plan was discussed with attending Dr. Ross Bland MD PGY1 Internal Medicine
[2024-10-10 23:47] LABS: Lactate (Lactic Acid) 0.6 mMol/L (0.4-2.0)
[2024-10-10 23:52] LABS: Basophils % (Auto) 0 % (0-2.5); Eosinophils # (Auto) 0.1 Thou/mm3 (0.0-0.5); Eosinophils % (Auto) 0 % (0-10); Hematocrit 31.8 % (41.0-53.0); Hemoglobin 11.2 g/dL (13.5-16.0); Immature Granulocytes % (Auto) 0 % (0-0); Immature Granulocytes Auto 0.05 Thou/mm3 (0.00-0.00); Lymphocytes # (Auto) 0.3 Thou/mm3 (1.0-4.8); Lymphocytes % (Auto) 2 % (10-50); Mean Corpuscular HGB Conc 35.2 g/dl (31.0-37.0); Mean Corpuscular Hemoglobin 30.5 pg (25.0-35.0); Mean Corpuscular Volume 87 fL (80-100); Monocytes # (Auto) 0.2 Thou/mm3 (0.0-0.8); Monocytes % (Auto) 2 % (0-12); Neutrophils % (Auto) 96 % (37-80); Nucleated Red Blood Cell % 0 /100 WBC (0); Platelet Count 121 Thou/mm3 (140-440); Red Blood Count 3.67 Miln/mm3 (4.50-5.90); White Blood Count 13.6 Thou/mm3 (3.8-10.6)
[2024-10-11] VITALS (22 sets, daily range): BP systolic 86–124; BP diastolic 51–75; PULSE 58–104; RESP 0–96; TEMP 32.2–37.5; O2SAT 95–99; BMI 19.4
--- NOTE | 2024-10-11 00:05 | ESCONSULT_ITS ---
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 Due to patient is nonverbal at baseline per chart review patient was having approximately 1 week of poor oral intake and decreased temperature to touch and later started to become weaker for which he was brought to the ED for further evaluation. On admission at the ED temperature was 90.6 F that later improved with warm IV fluids and Juan hugger to 92.5 F. 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 Koenig at [facility] gave verbal consent and Mr. Liu was admitted for further treatment and management failure to thrive, hypothermia and community-acquired pneumonia. During hospital stay patient underwent PEG tube placement in the afternoon without any complications during procedure around 23:20 rapid response was called due to hypothermia. Vitals BP: 105/75 HR: 58 RR: 12 T: 90F SpO2 97% on room air. Per night team patient patient was placed on Juan hugger and 1 L NS of warm IV fluids were given, CBC, CMP, lactic acid, urine and blood cultures were ordered and patient was transferred to the ICU for close monitoring due to hypothermia. cc:: cc: Darrian Hawkins MD Review of Systems Review of Systems ROS Unobtainable: unobtainable due to mental status and unobtainable due to medical condition Past Medical History Past Medical History Comments PMH COMMENT: Past medical history and social history as above. Family history unknown Exam Vital Signs Temp Pulse Resp BP Pulse Ox O2 Del Method O2 Flow Rate 95.6 F L 56 L 13 99/72 95 Room Air 3 10/10/24 20:00 10/10/24 20:00 10/10/24 20:00 10/10/24 20:00 10/10/24 20:00 10/10/24 20:00 10/10/24 19:10 Narrative Exam General: Nonverbal at baseline, legally blind, frail, underweight HEENT: NC/AT, PERRL, moist mucous membrane, protruding tongue, coarse facial features with left orbit mass Neck: Supple, No masses, No adenopathy, carotid pulse 2+ bilaterally without bruits, No JVD Chest: Symmetrical, atraumatic, and with equal expansion , Nontender on palpation no deformity and no crepitus. CVS: S1 and S2 present, Regular rate and rhythm, No murmurs, rubs or gallops perceived during auscultation. Lungs: Normal respiratory effort, CTAB, no wheezing, rhonchi or rales perceived during auscultation, No intercostal or subcostal retraction. Abdomen : Soft, abdominal binder in place with PEG tube, no guarding ,no rebound, +BS Extremities: No edema, cold and dry, cap refill less than 2 Skin: no rashes, no lesions, no erythema or jaundice noted Neuro: Difficult to assess due to patient mentation baseline Psych: Difficult to assess due to patient mentation baseline Results Labs 10/10/24 23:38 10/10/24 23:38 Labs: Short CBC 10/10/24 10/10/24 Range/Units 05:10 23:38 WBC 13.9 H D 13.6 H (3.8-10.6) Thou/mm3 Hgb 11.8 L D 11.2 L (13.5-16.0) g/dL Hct 33.9 L 31.8 L (41.0-53.0) % Plt Count 148 121 L (140-440) Thou/mm3 BMP 10/10/24 05:10 Sodium 137 Potassium 4.1 Chloride 103 Carbon Dioxide 28.2 BUN 16 Creatinine 0.9 Glucose 75 D Calcium 9.2 D Liver Function 10/10/24 Range/Units 05:10 Total Bilirubin 0.4 (0.3-1.2) mg/dL AST 31 (0-34) U/L ALT 52 H (10-49) U/L Alkaline Phosphatase 122 H D (46-116) U/L Albumin 3.6 D (3.4-4.8) gm/dL Quality Measures Quality Measures none Advance care planning discussed with:: other Medications Home Medications and Allergies Home Medications ?Medication ?Instructions ?Recorded ?Confirmed ?Type buspirone 15 mg tablet 15 mg PO TID 05/04/22 05/04/22 History calcium 600 mg (as 1 tab PO BID 05/04/22 05/04/22 History carbonate)-vitamin D3 10 mcg (400 unit) tablet docusate sodium 250 mg capsule 250 mg PO BID 05/04/22 05/04/22 History fluvoxamine 100 mg tablet 100 mg PO BID 05/04/22 05/04/22 History levocetirizine 5 mg tablet 5 mg PO HS 05/04/22 05/04/22 History olanzapine 10 mg tablet 10 mg PO QDAY 05/04/22 05/04/22 History omeprazole 20 mg capsule,delayed 20 mg PO QDAY 05/04/22 10/10/24 History release fluvoxamine 100 mg tablet mg 10/10/24 History melatonin 5 mg tablet 5 mg PO HS PRN Insomnia 10/10/24 10/10/24 History multivitamin with minerals-iron ml PO 10/10/24 History fumarate 9 mg iron/15 mL oral liquid (Multi Vitamin) omeprazole 20 mg capsule,delayed mg 10/10/24 History release polyethylene glycol 3350 17 g 10/10/24 History gram/dose oral powder polyethylene glycol 3350 17 g 10/10/24 History gram/dose oral powder polyethylene glycol 3350 17 g 10/10/24 History gram/dose oral powder (ClearLax) triamcinolone acetonide 0.1 % topical 10/10/24 History topical ointment Allergies Allergy/AdvReac Type Severity Reaction Status Date / Time No Known Allergies Allergy Verified 12/06/23 16:31 Visit Medications Acetaminophen (Acetaminophen Supp 650 Mg Supp) 650 mg AR Q6HR PRN PRN Reason: Fever > 100.4 Stop: 11/08/24 20:34 Heparin Sodium (Porcine) (Heparin Sod Inj 5000 Unit/Ml Vial) 5,000 unit SC Q12HR PHYLICIA Stop: 10/23/24 20:59 Last Admin: 10/10/24 21:05 Dose: 5,000 unit Ceftriaxone Sodium/Dextrose (Rocephin/D5w 1gm Iv Premix) 50 mls @ 100 mls/hr IV QDAY PHYLICIA Stop: 10/17/24 08:54 Last Admin: 10/10/24 09:56 Dose: 100 mls/hr Azithromycin 250 mg/ Sodium (Chloride) 250 mls @ 250 mls/hr IV QDAY PHYLICIA Stop: 10/15/24 08:59 Sodium Chloride (Ns) 1,000 mls @ 999 mls/hr IV .Q1H1M PHYLICIA Stop: 11/09/24 23:27 Multivitamins/Minerals (Multivitamin 15 Ml Udc) 15 ml GT HS PHYLICIA Stop: 11/09/24 20:59 Last Admin: 10/10/24 21:01 Dose: 15 ml Ondansetron HCl (Ondansetron Inj 2 Mg/Ml Inj 2 Ml) 4 mg IV Q6H PRN; Protocol PRN Reason: NAUSEA OR VOMITING Stop: 11/08/24 20:36 Pantoprazole Sodium (Pantoprazole Inj 40 Mg Vial) 40 mg IVP Q12HR PHYLICIA Stop: 11/08/24 20:59 Last Admin: 10/10/24 21:00 Dose: 40 mg Pharmacy Consult (Pharmacy To Consult Pneumovacc) 1 each XX PRN PRN PRN Reason: CONSULT Stop: 11/09/24 03:47 Thiamine HCl (Thiamine 100 Mg Tablet) 100 mg GT QDAY [facility] Stop: 11/10/24 08:59 Discontinued Medications Diphenhydramine HCl (Diphenhydramine Inj 50 Mg/Ml Vial) 25 mg IV [id number] PRN PRN Reason: MODERATE SEDATION Stop: 10/10/24 20:35 Fentanyl Citrate (Fentanyl Cit Inj 50 Mcg/Ml Amp 2ml) 50 mcg IV Q2M PRN PRN Reason: MODERATE SEDATION Stop: 10/10/24 20:35 Sodium Chloride (Ns) 1,000 mls @ 999 mls/hr IV .Q1H1M ONE Stop: 10/09/24 13:10 Last Infusion: 10/09/24 18:45 Dose: Infused Ceftriaxone Sodium/Dextrose (Rocephin/D5w 1gm Iv Premix) 50 mls @ 100 mls/hr IV X1 ONE Stop: 10/09/24 19:13 Last Infusion: 10/09/24 20:36 Dose: Infused Sodium Chloride (Ns) 1,000 mls @ 999 mls/hr IV .Q1H1M ONE Stop: 10/09/24 19:45 Last Infusion: 10/09/24 20:50 Dose: Infused Sodium Chloride (Ns) 1,000 mls @ 75 mls/hr IV .[id number] PHYLICIA Stop: 10/10/24 20:44 Last Admin: 10/10/24 10:59 Dose: 75 mls/hr Piperacillin/Tazobactam/Dextrose (Zosyn) 3.375 gm in 50 mls @ 12.5 mls/hr IV Q8HR PHYLICIA Stop: 10/17/24 05:59 Last Admin: 10/10/24 05:24 Dose: 12.5 mls/hr Piperacillin/Tazobactam/Dextrose (Zosyn) 3.375 gm in 50 mls @ 100 mls/hr IV X1 ONE Stop: 10/09/24 21:14 Last Infusion: 10/09/24 22:03 Dose: Infused Azithromycin 500 mg/ Sodium (Chloride) 250 mls @ 250 mls/hr IV X1 ONE Stop: 10/10/24 09:54 Last Admin: 10/10/24 11:02 Dose: 250 mls/hr Magnesium Sulfate (Magnesium Sulfate Ivpb) 4 gm in 50 mls @ 12.5 mls/hr IV X1 ONE Stop: 10/10/24 12:57 Last Admin: 10/10/24 09:57 Dose: 12.5 mls/hr Thiamine HCl 250 mg/ Sodium (Chloride) 102.5 mls @ 205 mls/hr IV X1 ONE Stop: 10/10/24 16:53 Last Admin: 10/10/24 17:01 Dose: Not Given Influenza Virus Vaccine Quadrival (Influenza Virus Quadrivalent 0.5 Ml Syringe) 0.5 ml IMi .ONCE ONE Stop: 10/10/24 03:49 Last Admin: 10/10/24 07:56 Dose: Not Given Midazolam HCl (Midazolam Inj 1 Mg/Ml Vial 2 Ml) 2 mg IV Q2M PRN PRN Reason: Moderate Sedation Stop: 10/10/24 20:35 Multivitamins/Minerals (Multivitamin 15 Ml Udc) 15 ml GT QDAY PHYLICIA Stop: 11/09/24 16:29 Last Admin: 10/10/24 17:01 Dose: Not Given Pneumococcal Polyvalent Vaccine (Pneumoc 20-Nanette Conj-Dip Crm/Pf 0.5 Ml Syringe) 0.5 ml IMi .ONCE ONE Stop: 10/10/24 06:16 Last Admin: 10/10/24 07:57 Dose: Not Given Thiamine HCl (Thiamine Inj 100 Mg/Ml Vial 2 Ml) 250 mg IV X1 ONE Stop: 10/10/24 16:31 Last Admin: 10/10/24 17:46 Dose: 250 mg Assessment & Plan Plan 74-year-old man [facility] resident with past medical history of seizures, left orbit tumor, 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 Due to patient is nonverbal at baseline per chart review patient was having approximately 1 week of poor oral intake and decreased temperature to touch and later started to become weaker for which he was brought to the ED for further evaluation. On admission at the ED temperature was 90.6 F that later improved with warm IV fluids and Juan hugger to 92.5 F. 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 Koenig at [facility] gave verbal consent and Mr. Liu was admitted for further treatment and management failure to thrive, hypothermia and community-acquired pneumonia. During hospital stay patient underwent PEG tube placement in the afternoon without any complications during procedure around 23:20 rapid response was called due to hypothermia. Vitals BP: 105/75 HR: 58 RR: 12 T: 90F SpO2 97% on room air. Per night team patient patient was placed on Juan hugger and 1 L NS of warm IV fluids were given, CBC, CMP, lactic acid, urine and blood cultures were ordered and patient was transferred to the ICU for close monitoring due to hypothermia. ELEVATOR CONDUCTOR: #Hypothermia stage I DDx include shock vs infectious vs medication induced vs postsurgery vs hypothalamic dysfunction vs malnutrition vs hypoglycemia vs iatrogenic hypothermia On admission patient was hypothermic 90.6 F that improved with Juan hugger and warm IV fluids Patient was not septic on admission, lactic acid, Pro-Herman, CBC, UA, TSH were unremarkable chest x-ray showed possible atelectasis of left lower lung ? Continue Juan hugger to increase between 0.5 to 1 ?C per HR max ? Continuous rectal temperature ? Vital signs every hour ? Follow-up repeat blood and urine cultures ? 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 Seizure precautions ? Pending med rec [facility]: Stable PULM: #Community-acquired pneumonia vs aspiration pneumonia? Per chart review patient was having poor p.o. intake for more than a week and decrease in body temperature as well as generalized weakness Patient is on room air, patient does not look septic On admission patient was not septic inflammatory markers were negative CBC and UA unremarkable, preliminary 24 hours blood cultures has been negative Chest x-ray showed possible atelectasis of left lower lobe ? Continue IV ceftriaxone and azithromycin ? Follow-up CBC GI: #Status post PEG tube placement Gastroenterology was consulted and patient underwent PEG tube placement ? Continue tube feedings Jevity 1.4 at a rate of 10 mL/h and advance as tolerated to goal rate feeding ? Continue Protonix 40 mg IV twice daily ? Follow-up CBC and CMP #Failure to thrive Patient was having poor p.o. intake for more than a week and has lost more than 10 pounds in the last in the last year patient has a past medical history left orbital mass and is not a surgical candidate ? Continue thiamine 100 mg daily ? Follow-up electrolytes and replete as necessary RENAL: Stable ENDO: #Hypoglycemia resolved Most likely secondary to poor p.o. intake Fingerstick glucose 62 and 1 amp of D50 x 1 was given ? Fingerstick glucose every 6 hours ? Hypoglycemia protocol in place ? Follow-up CMP HEME/ONC: #Leukocytosis Possibly secondary to pneumonia vs reactive WBCs 13.6 ? See ID as below #Chronic normocytic anemia Most likely secondary to anemia of chronic disease Hgb 11.2, no signs of active bleeding ? Follow-up CBC and CMP ID: #Pneumonia? Possibly community-acquired vs aspiration? Chest x-ray showed possibly left lung atelectasis and patient was covered with IV antibiotics otherwise patient is on room air saturating well, does not look septic but remains hypothermic WBCs shows leukocytosis 13.6 preliminary blood cultures were negative, lactic acid within normal limits ? Continue IV ceftriaxone and azithromycin ? Follow-up repeated blood and urine cultures ? Follow-up CBC and CMP MSK: Stable SKIN: Stable FEN: Jevity 1.4 with a rate of 10 mL/h Lines: Peripheral DVT prophylaxis: Heparin GI prophylaxis: Protonix Coal Cutter: Tiffanie Garza ([phone]) CODE STATUS: Full code Patient discussed with my attending Dr Ross Evangelista MD PGY-3 Disclaimer: Despite multiple revisions, due to the dictation software being used, the document bellow may not be free of grammatical errors including/typographic errors. However, this does not deter from our commitment to providing health care in best interest in mind. Attending Provider Attestation/Addendum Patient was seen and examined. He had PEG tube placement today. The patient developed hypothermia again just like when he was first seen on admission. The patient will receive warm IV saline infusion. He will be transferred to the ICU for closer monitoring as discussed with powerhouse tender krystina.
[2024-10-11 00:13] LABS: Anion Gap 4 (7-16); BUN/Creatinine Ratio 19 Ratio (12-20); Blood Urea Nitrogen 15 mg/dL (9-23); Calcium 8.1 mg/dL (8.3-10.6); Carbon Dioxide 26.5 mMol/L (20.0-31.0); Chloride 105 mMol/L (98-107); Creatinine (Component) 0.8 mg/dL (0.6-1.3); Estimated Creatinine Clearance 44.5 mL/min (>60); Glucose 307 mg/dL (74-106); Osmolality,Calculated 282 (275-295); Potassium 3.6 mMol/L (3.4-5.1); Sodium 135 mMol/L (136-145); eGFR > 60 See Note
--- NOTE | 2024-10-11 01:43 | PC.NURSE ---
received patient and bedside report from tele at 0032. RR for temp of 90.0. Rectal thermo placed and jenna hugger applied to pt, temp slowly increasing
[2024-10-11 06:04] LABS: Basophils % (Auto) 0 % (0-2.5); Eosinophils % (Auto) 0 % (0-10); Hematocrit 34.6 % (41.0-53.0); Hemoglobin 12.1 g/dL (13.5-16.0); Immature Granulocytes % (Auto) 0 % (0-0); Immature Granulocytes Auto 0.07 Thou/mm3 (0.00-0.00); Lymphocytes # (Auto) 0.3 Thou/mm3 (1.0-4.8); Lymphocytes % (Auto) 2 % (10-50); Mean Corpuscular Hemoglobin 30.3 pg (25.0-35.0); Mean Corpuscular Volume 87 fL (80-100); Monocytes # (Auto) 0.5 Thou/mm3 (0.0-0.8); Monocytes % (Auto) 3 % (0-12); Neutrophils # (Auto) 18.3 Thou/mm3 (1.8-7.7); Neutrophils % (Auto) 95 % (37-80); Nucleated Red Blood Cell % 0 /100 WBC (0); Platelet Count 153 Thou/mm3 (140-440); RDW Standard Deviation 44.1 fL (35.1-43.9); White Blood Count 19.2 Thou/mm3 (3.8-10.6)
[2024-10-11 06:23] LABS: Partial Thromboplastin Time 41.7 Seconds (22.0-36.0)
[2024-10-11 06:32] LABS: Alanine Aminotransferase 54 U/L (10-49); Albumin, Serum 3.5 gm/dL (3.4-4.8); Albumin/Globulin Ratio 1.8 (1.2-2.2); Alkaline Phosphatase 114 U/L (46-116); Anion Gap 4 (7-16); Aspartate Amino Transferase 34 U/L (0-34); BUN/Creatinine Ratio 21 Ratio (12-20); Bilirubin,Total 0.4 mg/dL (0.3-1.2); Blood Urea Nitrogen 17 mg/dL (9-23); Calcium 8.9 mg/dL (8.3-10.6); Calcium (Corrected) 9.3 mg/dL (8.5-10.1); Carbon Dioxide 28.1 mMol/L (20.0-31.0); Chloride 104 mMol/L (98-107); Creatine Kinase 59 U/L (34-171); Creatinine (Component) 0.8 mg/dL (0.6-1.3); Estimated Creatinine Clearance 44.5 mL/min (>60); Globulin 1.9 gm/dL (2.3-3.5); Glucose 90 mg/dL (74-106); Magnesium 2.3 mg/dL (1.6-2.6); Osmolality,Calculated 273 (275-295); Phosphorous 3.2 mg/dL (2.4-5.1); Potassium 3.8 mMol/L (3.4-5.1); Sodium 136 mMol/L (136-145); Total Protein 5.4 gm/dL (5.7-8.2); eGFR > 60 See Note
[2024-10-11] MEDS: cefTRIAXone/D5w 1gm IV premix 50 ML IV (09:16)
[2024-10-11] MEDS: HEPARIN SOD INJ 5000 UNIT/ML VIAL SC ×2 (09:16→20:21)
[2024-10-11] MEDS: AZITHROMYCIN INJ 250 MG in SODIUM CHLORIDE 0.9% 250 ML 250 ML IV (09:16)
[2024-10-11] MEDS: PANTOPRAZOLE INJ 40 MG VIAL IVP (09:17)
[2024-10-11] MEDS: THIAMINE 100 MG TABLET GT (09:17)
--- NOTE | 2024-10-11 11:12 | PD.RESPRO ---
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 Due to patient is nonverbal at baseline per chart review patient was having approximately 1 week of poor oral intake and decreased temperature to touch and later started to become weaker for which he was brought to the ED for further evaluation. On admission at the ED temperature was 90.6 F that later improved with warm IV fluids and Juan hugger to 92.5 F. 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 Koenig at [facility] gave verbal consent and Mr. Liu was admitted for further treatment and management failure to thrive, hypothermia and community-acquired pneumonia. During hospital stay patient underwent PEG tube placement in the afternoon without any complications during procedure around 23:20 rapid response was called due to hypothermia. Vitals BP: 105/75 HR: 58 RR: 12 T: 90F SpO2 97% on room air. Per night team patient patient was placed on Juan hugger and 1 L NS of warm IV fluids were given, CBC, CMP, lactic acid, urine and blood cultures were ordered and patient was transferred to the ICU for close monitoring due to hypothermia. 10/11/24: Overnight patient was upgraded to ICU level of care due to significant hypothermia. In the ICU patient was placed on the bear hugger and received IV fluid hydration with warmed fluids. Since 4 AM patient has sustained temperatures above 94.6 consistently. Unlikely to be septic source due to negative blood cultures and normal white blood cell count without any clinical signs of infection. Do suspect that there may be some degree of hypothymic dysfunction due to the fact that the patient has a large soft tissue tumor that is invading into the orbital and may be leading to hypothymic dysfunction which may be contributing to both the hypoglycemia and the hypothermia along with hypotension. Noted to have leukocytosis with WBC at 19.2 but suspect that this may be inflammatory secondary to the PEG tube placement. Patient does not have any other sources for infection Most recent lactic acid was negative at 0.6. Will order cortisol studies to assess if patient has adrenal insufficiency. Will downgrade the patient back to med/tele for further management by primary team. Exam Vital Signs Temp Pulse Resp BP Pulse Ox O2 Del Method O2 Flow Rate 98.9 F 89 18 87/51 L 96 Room Air 3 10/11/24 08:00 10/11/24 11:00 10/11/24 11:00 10/11/24 11:10/11/24 11:10/11/24 11:10/11/24 04:00 Narrative Exam General: Nonverbal at baseline, legally blind, frail, underweight HEENT: Unable to assess the eyes due to the massive tumor in the left orbital. Moist mucous membrane, protruding tongue, coarse facial features with left orbit mass Neck: Supple, No masses, No adenopathy, carotid pulse 2+ bilaterally without bruits, No JVD Chest: Symmetrical, atraumatic, and with equal expansion , Nontender on palpation no deformity and no crepitus. CVS: S1 and S2 present, Regular rate and rhythm, No murmurs, rubs or gallops perceived during auscultation. Lungs: Normal respiratory effort, CTAB, no wheezing, rhonchi or rales perceived during auscultation, No intercostal or subcostal retraction. Abdomen : Soft, abdominal binder in place with PEG tube, no guarding ,no rebound, +BS Extremities: No edema, cold and dry, cap refill less than 2 Skin: no rashes, no lesions, no erythema or jaundice noted Neuro: Difficult to assess due to patient mentation baseline Psych: Difficult to assess due to patient mentation baseline Objective Labs 10/12/24 05:42 10/12/24 05:42 Labs: Laboratory Results - last 24 hr 10/10/24 10/11/24 23:38 05:39 WBC 13.6 H 19.2 H D RBC 3.67 L 4.00 L Hgb 11.2 L 12.1 L Hct 31.8 L 34.6 L MCV 87 87 MCH 30.5 30.3 MCHC 35.2 35.0 RDW Std Deviation 44.0 H 44.1 H Plt Count 121 L 153 D Neut % (Auto) 96 H 95 H Lymph % (Auto) 2 L 2 L [place] % (Auto) 2 3 Eos % (Auto) 0 0 Baso % (Auto) 0 0 Neut # (Auto) 13.0 H 18.3 H Lymph # (Auto) 0.3 L 0.3 L [place] # (Auto) 0.2 0.5 Eos # (Auto) 0.1 0.0 Baso # (Auto) 0.0 0.0 Immature Gran # (Auto) 0.05 H 0.07 H Absolute Nucleated RBC 0.00 0.00 Immature Gran % 0 0 Nucleated RBC % 0 0 PT 11.0 INR 1.0 APTT 41.7 H Sodium 135 L 136 Potassium 3.6 D 3.8 Chloride 105 104 Carbon Dioxide 26.5 28.1 Anion Gap 4 L 4 L BUN 15 17 Creatinine 0.8 0.8 Estim Creat Clear Calc 44.5 L 44.5 L eGFR > 60 > 60 BUN/Creatinine Ratio 19 21 H Glucose 307 H D 90 D Calculated Osmolality 282 273 L Lactic Acid 0.6 Calcium 8.1 L 8.9 Corrected Calcium 9.3 Phosphorus 3.2 Magnesium 2.3 Total Bilirubin 0.4 AST 34 ALT 54 H Alkaline Phosphatase 114 Total Creatine Kinase 59 Total Protein 5.4 L Albumin 3.5 Globulin 1.9 L Albumin/Globulin Ratio 1.8 TSH 1.10 Quality Measures Quality Measures none Advance care planning discussed with:: other Assessment & Plan Assessment Current Active Medications: Generic Name Dose Route Start Last Admin Trade Name Freq PRN Reason Stop Dose Admin Acetaminophen 650 mg 10/09/24 20:35 Acetaminophen Supp 650 Mg Supp VT 11/08/24 20:34 Q6HR PRN Fever > 100.4 Dextrose 25 ml 10/11/24 04:41 Dextrose 50%-Water Inj 50 Ml Syringe IV 11/10/24 04:40 Q15MIN PRN BG 50-70 responsive npo pt Dextrose 50 ml 10/11/24 04:41 Dextrose 50%-Water Inj 50 Ml Syringe IV 11/10/24 04:40 Q15MIN PRN BG <50 OR BG <70 & pt unresponsive Glucagon 1 mg 10/11/24 04:41 Glucagon Inj 1 Mg Vial IM Q15MIN PRN BG <70, and no IV access Heparin Sodium (Porcine) 5,000 unit 10/09/24 21:00 10/11/24 09:16 Heparin Sod Inj 5000 Unit/Ml Vial SC 10/23/24 20:59 5,000 unit Q12HR PHYLICIA Administration Ceftriaxone Sodium/Dextrose 50 mls @ 100 mls/hr 10/10/24 08:55 10/11/24 09:16 Rocephin/D5w 1gm Iv Premix IV 10/17/24 08:54 100 mls/hr QDAY PHYLICIA Administration Azithromycin 250 mg/ Sodium 250 mls @ 250 mls/hr 10/11/24 09:00 10/11/24 09:16 Chloride IV 10/15/24 08:59 250 mls/hr QDAY PHYLICIA Administration Multivitamins/Minerals 15 ml 10/10/24 21:00 10/10/24 21:01 Multivitamin 15 Ml Udc GT 11/09/24 20:59 15 ml HS PHYLICIA Administration Ondansetron HCl 4 mg 10/09/24 20:37 Ondansetron Inj 2 Mg/Ml Inj 2 Ml IV 11/08/24 20:36 Q6H PRN NAUSEA OR VOMITING Protocol Pantoprazole Sodium 40 mg 10/11/24 09:00 10/11/24 09:17 Pantoprazole Inj 40 Mg Vial IVP 11/10/24 08:59 40 mg QDAY PHYLICIA Administration Pharmacy Consult 1 each 10/10/24 03:48 Pharmacy To Consult Pneumovacc XX 11/09/24 03:47 PRN PRN CONSULT Thiamine HCl 100 mg 10/11/24 09:00 10/11/24 09:17 Thiamine 100 Mg Tablet GT 11/10/24 08:59 100 mg QDAY PHYLICIA Administration Plan PROFESSIONAL SERVICES MANAGER: #Hypothermia stage I DDx include shock vs infectious vs medication induced vs postsurgery vs hypothalamic dysfunction vs malnutrition vs hypoglycemia vs iatrogenic hypothermia On admission patient was hypothermic 90.6 F that improved with Juan hugger and warm IV fluids Patient was not septic on admission, lactic acid, Pro-Herman, CBC, UA, TSH were unremarkable chest x-ray showed possible atelectasis of left lower lung ? Continue with bear hugger ? 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 Patient has a nonoperable orbital tumor with decreased p.o. intake requiring PEG tube placement and frequent hypoglycemia and hypothermia. #History of seizure disorder Patient has past medical history of seizure disorders otherwise per home meds records patient is not taking any antiepileptic medications ? Seizure precautions ? No antiepileptic seen on med rec. Patient does take fluvoxamine which is an OCD medication. Does not demonstrate any compulsions or takes currently. Will hold prescribed olanzapine because patient is mostly resting comfortably in bed without agitation CVS: Stable PULM: #Community-acquired pneumonia vs aspiration pneumonia? Per chart review patient was having poor p.o. intake for more than a week and decrease in body temperature as well as generalized weakness Patient is on room air, patient does not look septic On admission patient was not septic inflammatory markers were negative CBC and UA unremarkable, preliminary 24 hours blood cultures has been negative Chest x-ray showed possible atelectasis of left lower lobe ? Continue IV ceftriaxone and azithromycin. Chest x-ray does not reveal too many signs of pneumonia but recently did have elevation in white count so can continue with antibiotic therapy. No sputum cultures found. ? Follow-up CBC GI: #Status post PEG tube placement Gastroenterology was consulted and patient underwent PEG tube placement ? Continue tube feedings Jevity 1.4 at a rate of 10 mL/h and advance as tolerated to goal rate feeding 40 cc/h once Dr. Evans gives the okay ? Continue Protonix 40 mg IV twice daily ? Follow-up CBC and CMP #Failure to thrive Patient was having poor p.o. intake for more than a week and has lost more than 10 pounds in the last in the last year patient has a past medical history left orbital mass and is not a surgical candidate ? Continue thiamine 100 mg daily ? Follow-up electrolytes and replete as necessary Recommend goals of care discussion with conservator. Patient has orbital tumor and is supposedly not a candidate for surgical intervention but remains full code and is having hypoglycemia with hypothermia. RENAL: Stable ENDO: #Hypoglycemia resolved Most likely secondary to poor p.o. intake Fingerstick glucose 62 and 1 amp of D50 x 1 was given ? Fingerstick glucose every 6 hours ? Hypoglycemia protocol in place Expect hypoglycemia to resolve when patient's feeds are at goal rate HEME/ONC: #Leukocytosis Possibly secondary to pneumonia vs reactive WBCs elevated to 19.2. Suspect reactive secondary to surgical intervention for PEG tube placement ? See ID as below #Chronic normocytic anemia Most likely secondary to anemia of chronic disease Hgb 12.1 no signs of active bleeding ? Follow-up CBC and CMP ID: #Pneumonia? Possibly community-acquired vs aspiration? Chest x-ray showed possibly left lung atelectasis and patient was covered with IV antibiotics otherwise patient is on room air saturating well, does not look septic but remains hypothermic WBCs shows leukocytosis 13.6 preliminary blood cultures were negative, lactic acid within normal limits ? Continue IV ceftriaxone and azithromycin due to leukocytosis but low degree of suspicion for pneumonia ? Follow-up blood cultures negative for 24 hours. Urine cultures pending ? Follow-up CBC and CMP MSK: Stable. Patient appears contracted with thin and frail legs and weak musculature. Likely has had a long state of immobilization SKIN: Stable FEN: Jevity 1.4 with a rate of 10 mL/h to be held there for 24 hours and then advanced to goal rate of 40 as long as patient can tolerate Lines: Peripheral DVT prophylaxis: Heparin GI prophylaxis: Protonix Sand Mixer Machine: Tiffanie Garza ([phone]) CODE STATUS: Full code Plan of care discussed with supervising attending Dr. Justyn Rose M.D. PGY-3 Attending Provider Attestation/Addendum Patient seen and examined with resident team. In brief this is a 74-year-old male admitted to the ICU for hypothermia and resuscitation. This morning he is found in bed in no apparent distress. He is contracted. Oral mucosa appears dry large soft tissue mass in the left eye and unable to evaluate ocular globe, unable to fully open patient's right eye for complete evaluation either. Lungs are clear to auscultation bilaterally, heart regular rhythmic, abdomen is soft flat nontender new PEG in place. Patient was found hypothermic on the floor and started on a Juan hugger. He was given warm fluid infusion. His core temp improved to within normal limits. His vital signs are stable. He will be returned to the medical [facility] for further and ongoing treatment and evaluation. Case discussed with ICU team Labs, imaging and records reviewed ~35min required for eval, exam, review, intervention, discussion and formulation of POC for this acutely ill pt with failure to thrive
--- NOTE | 2024-10-11 15:24 | ESPR_ITS ---
Documentation for date of: 10/11/24 Subjective Subjective Interval history: Patient was moved to the ICU last night because of hypothermia No evidence of any sepsis PEG site looks good No drainage Exam Vital Signs Temp Pulse Resp BP Pulse Ox O2 Del Method O2 Flow Rate 97.3 F 96 22 H 94/54 L 95 Room Air 3 10/11/24 12:00 10/11/24 14:00 10/11/24 14:00 10/11/24 14:00 10/11/24 14:00 10/11/24 14:00 10/11/24 04:00 Objective Labs 10/11/24 05:39 10/11/24 05:39 Labs: Laboratory Results - last 24 hr 10/10/24 10/11/24 23:38 05:39 WBC 13.6 H 19.2 H D RBC 3.67 L 4.00 L Hgb 11.2 L 12.1 L Hct 31.8 L 34.6 L MCV 87 87 MCH 30.5 30.3 MCHC 35.2 35.0 RDW Std Deviation 44.0 H 44.1 H Plt Count 121 L 153 D Neut % (Auto) 96 H 95 H Lymph % (Auto) 2 L 2 L [place] % (Auto) 2 3 Eos % (Auto) 0 0 Baso % (Auto) 0 0 Neut # (Auto) 13.0 H 18.3 H Lymph # (Auto) 0.3 L 0.3 L [place] # (Auto) 0.2 0.5 Eos # (Auto) 0.1 0.0 Baso # (Auto) 0.0 0.0 Immature Gran # (Auto) 0.05 H 0.07 H Absolute Nucleated RBC 0.00 0.00 Immature Gran % 0 0 Nucleated RBC % 0 0 PT 11.0 INR 1.0 APTT 41.7 H Sodium 135 L 136 Potassium 3.6 D 3.8 Chloride 105 104 Carbon Dioxide 26.5 28.1 Anion Gap 4 L 4 L BUN 15 17 Creatinine 0.8 0.8 Estim Creat Clear Calc 44.5 L 44.5 L eGFR > 60 > 60 BUN/Creatinine Ratio 19 21 H Glucose 307 H D 90 D Calculated Osmolality 282 273 L Lactic Acid 0.6 Calcium 8.1 L 8.9 Corrected Calcium 9.3 Phosphorus 3.2 Magnesium 2.3 Total Bilirubin 0.4 AST 34 ALT 54 H Alkaline Phosphatase 114 Total Creatine Kinase 59 Total Protein 5.4 L Albumin 3.5 Globulin 1.9 L Albumin/Globulin Ratio 1.8 TSH 1.10 Impressions Impression: # Dysphagia # Failure to thrive requiring placement of a PEG tube # Hypothermia hypotension most likely related to invasion of the left orbital tumor into the brain most likely central in origin Resume PEG tube feeding Assessment & Plan A&P Narrative # Failure to thrive Patient not eating at all as per the metallurgical laboratory assistant Appropriate consent will be obtained from the appropriate authorities for percutaneous endoscopic gastrostomy tube insertion via fiberoptic esophagogastroduodenoscopy under intravenous moderate sedation scheduled for tomorrow N.p.o. 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
--- NOTE | 2024-10-11 16:24 | PD.RESEVENT ---
Documentation for date of: 10/11/24 Event Note Event Note: The patient is a 74-year-old male with a past medical history of seizures, left orbit tumor, developmental delay who is nonverbal at baseline and legally blind, admitted to the ED on 10/09/2024 due to failure to thrive and hypothermia. Patient was initially improving with warm IV fluids and Juan hugger after which temperature was up to 92.5. Patient got a PEG tube placement and results complications. At 23:20 yesterday, rapid response was called due to hypothermia, patient's temperature was 90 ?F at the time and heart rate was 58 saturation 97% on room air. Patient was placed back on Juan hugger and given warmed IV fluids to which she was transferred to the ICU for close monitoring. The ICU, the patient continues to be in the Juan hugger and warm IV fluids and sustained temperature above 94.6 consistently. The patient is stable to be downgraded back to the floors. Will resume care on 10/12/2024. Case was discussed with attending physician, Dr Shabbir Vargas MD PGY-1
[2024-10-11] MEDS: MULTIVITAMIN 15 ML UDC GT (20:21)
[2024-10-12] VITALS (9 sets, daily range): BP systolic 122–153; BP diastolic 69–100; PULSE 52–91; RESP 12–98; TEMP 36–37.3; O2SAT 95–98; BMI 19.2
[2024-10-12 06:14] LABS: Basophils % (Auto) 0 % (0-2.5); Eosinophils # (Auto) 0.1 Thou/mm3 (0.0-0.5); Eosinophils % (Auto) 1 % (0-10); Hematocrit 32.1 % (41.0-53.0); Hemoglobin 11.5 g/dL (13.5-16.0); Immature Granulocytes % (Auto) 0 % (0-0); Immature Granulocytes Auto 0.03 Thou/mm3 (0.00-0.00); Lymphocytes # (Auto) 0.5 Thou/mm3 (1.0-4.8); Lymphocytes % (Auto) 6 % (10-50); Mean Corpuscular HGB Conc 35.8 g/dl (31.0-37.0); Mean Corpuscular Hemoglobin 30.7 pg (25.0-35.0); Mean Corpuscular Volume 86 fL (80-100); Monocytes # (Auto) 0.7 Thou/mm3 (0.0-0.8); Monocytes % (Auto) 8 % (0-12); Neutrophils # (Auto) 7.5 Thou/mm3 (1.8-7.7); Neutrophils % (Auto) 85 % (37-80); Nucleated Red Blood Cell % 0 /100 WBC (0); Platelet Count 130 Thou/mm3 (140-440); RDW Standard Deviation 43.3 fL (35.1-43.9); Red Blood Count 3.75 Miln/mm3 (4.50-5.90); White Blood Count 8.8 Thou/mm3 (3.8-10.6)
[2024-10-12 06:23] LABS: Prothrombin Time 10.9 Seconds (9.0-12.2)
[2024-10-12 06:42] LABS: Alanine Aminotransferase 44 U/L (10-49); Albumin, Serum 3.5 gm/dL (3.4-4.8); Albumin/Globulin Ratio 1.8 (1.2-2.2); Alkaline Phosphatase 108 U/L (46-116); Anion Gap 6 (7-16); Aspartate Amino Transferase 35 U/L (0-34); BUN/Creatinine Ratio 18 Ratio (12-20); Bilirubin,Total 0.4 mg/dL (0.3-1.2); Blood Urea Nitrogen 16 mg/dL (9-23); Calcium (Corrected) 9.4 mg/dL (8.5-10.1); Carbon Dioxide 29.1 mMol/L (20.0-31.0); Chloride 101 mMol/L (98-107); Creatinine (Component) 0.9 mg/dL (0.6-1.3); Estimated Creatinine Clearance 42.4 mL/min (>60); Globulin 1.9 gm/dL (2.3-3.5); Glucose 103 mg/dL (74-106); Osmolality,Calculated 273 (275-295); Phosphorous 2.9 mg/dL (2.4-5.1); Potassium 3.4 mMol/L (3.4-5.1); Sodium 136 mMol/L (136-145); Total Protein 5.4 gm/dL (5.7-8.2); eGFR > 60 See Note
[2024-10-12] MEDS: cefTRIAXone/D5w 1gm IV premix 50 ML IV (08:09)
[2024-10-12] MEDS: HEPARIN SOD INJ 5000 UNIT/ML VIAL SC ×2 (08:09→22:40)
[2024-10-12] MEDS: THIAMINE 100 MG TABLET GT (08:09)
[2024-10-12] MEDS: PANTOPRAZOLE INJ 40 MG VIAL IVP (08:09)
[2024-10-12] MEDS: AZITHROMYCIN INJ 250 MG in SODIUM CHLORIDE 0.9% 250 ML 250 ML IV (10:14)
--- NOTE | 2024-10-12 12:56 | ESPR_ITS ---
<Statement entered by Lindy Flores MD - 10/12/24 14:07> Senior Resident Attestation: I supervised/discussed management plan with resident physician Dr. Alcaraz, and was involved in the care of this patient. I personally saw and examined the patient and discussed the assessment and plan with the entire medicine team, including my attending. I agree with the assessment and plan as documented. Patient's care was discussed with attending physician, Dr. Shabbir Flores MD PGY-3 Documentation for date of: 10/12/24 Subjective Subjective Interval history: Patient seen at bedside was downgraded from ICU in a.m. Patient has hematuria, has Wilson intact Patient tugging at Wilson catheter, will continue to monitor Patient's tube feeding is at 20 cc/h, will advance slowly due to risk of refeeding syndrome. Goal tube feeding rate to 40 cc/h. Patient is otherwise hemodynamically stable, body temperature within normal limits. 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 Objective Labs 10/12/24 05:42 10/12/24 05:42 Labs: Laboratory Results - last 24 hr 10/12/24 05:42 WBC 8.8 D RBC 3.75 L Hgb 11.5 L Hct 32.1 L MCV 86 MCH 30.7 MCHC 35.8 RDW Std Deviation 43.3 Plt Count 130 L Neut % (Auto) 85 H Lymph % (Auto) 6 L [place] % (Auto) 8 Eos % (Auto) 1 Baso % (Auto) 0 Neut # (Auto) 7.5 Lymph # (Auto) 0.5 L [place] # (Auto) 0.7 Eos # (Auto) 0.1 Baso # (Auto) 0.0 Immature Gran # (Auto) 0.03 H Absolute Nucleated RBC 0.00 Immature Gran % 0 Nucleated RBC % 0 PT 10.9 INR 1.0 Sodium 136 Potassium 3.4 Chloride 101 Carbon Dioxide 29.1 Anion Gap 6 L BUN 16 Creatinine 0.9 Estim Creat Clear Calc 42.4 L eGFR > 60 BUN/Creatinine Ratio 18 Glucose 103 Calculated Osmolality 273 L Calcium 9.0 Corrected Calcium 9.4 Phosphorus 2.9 Total Bilirubin 0.4 AST 35 H ALT 44 Alkaline Phosphatase 108 Total Protein 5.4 L Albumin 3.5 Globulin 1.9 L Albumin/Globulin Ratio 1.8 Quality Measures Quality Measures none Advance care planning discussed with:: legal surragate Assessment & Plan Assessment Current Active Medications: Generic Name Dose Route Start Last Admin Trade Name Freq PRN Reason Stop Dose Admin Acetaminophen 650 mg 10/09/24 20:35 Acetaminophen Supp 650 Mg Supp PA 11/08/24 20:34 Q6HR PRN Fever > 100.4 Dextrose 25 ml 10/11/24 04:41 Dextrose 50%-Water Inj 50 Ml Syringe IV 11/10/24 04:40 Q15MIN PRN BG 50-70 responsive npo pt Dextrose 50 ml 10/11/24 04:41 Dextrose 50%-Water Inj 50 Ml Syringe IV 11/10/24 04:40 Q15MIN PRN BG <50 OR BG <70 & pt unresponsive Glucagon 1 mg 10/11/24 04:41 Glucagon Inj 1 Mg Vial IM Q15MIN PRN BG <70, and no IV access Heparin Sodium (Porcine) 5,000 unit 10/09/24 21:00 10/12/24 08:09 Heparin Sod Inj 5000 Unit/Ml Vial SC 10/23/24 20:59 5,000 unit Q12HR PHYLICIA Administration Ceftriaxone Sodium/Dextrose 50 mls @ 100 mls/hr 10/10/24 08:55 10/12/24 09:12 Rocephin/D5w 1gm Iv Premix IV 10/17/24 08:54 Infused QDAY PHYLICIA Infusion Azithromycin 250 mg/ Sodium 250 mls @ 250 mls/hr 10/12/24 09:15 10/12/24 10:14 Chloride IV 10/15/24 08:59 250 mls/hr QDAY PHYLICIA Administration Multivitamins/Minerals 15 ml 10/10/24 21:00 10/11/24 20:21 Multivitamin 15 Ml Udc GT 11/09/24 20:59 15 ml HS PHYLICIA Administration Ondansetron HCl 4 mg 10/09/24 20:37 Ondansetron Inj 2 Mg/Ml Inj 2 Ml IV 11/08/24 20:36 Q6H PRN NAUSEA OR VOMITING Protocol Pantoprazole Sodium 40 mg 10/11/24 09:00 10/12/24 08:09 Pantoprazole Inj 40 Mg Vial IVP 11/10/24 08:59 40 mg QDAY PHYLICIA Administration Pharmacy Consult 1 each 10/10/24 03:48 Pharmacy To Consult Pneumovacc XX 11/09/24 03:47 PRN PRN CONSULT Thiamine HCl 100 mg 10/11/24 09:00 10/12/24 08:09 Thiamine 100 Mg Tablet GT 11/10/24 08:59 100 mg QDAY PHYLICIA Administration Plan Assessment and Plan: Summary: 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 intake for the last week. Has become less interactive per hands and dial inspector and is cool to touch.BMI 17.9. Difficult to ascertain etiologies given patient's inability to communicate. Symptoms likely due to significantly decreased p.o. intake, unlikely infectious etiology but cannot definitely be ruled out. TSH 0.94. Patient was given 2 L NS device processing engineer ED, was in Juan hugger, eventually patient's temperature improved to within normal limits. Patient was upgraded to ICU after PEG tube placement due to hypothermia, patient was put on Juan hugger, was given warm NS. Downgraded after hypothermia resolved. Plan: -Patient's temperature within normal limits -Patient currently on tube feeding, rate 20 cc/h, goal rate 40 cc/h -Fingerstick blood glucose every 4 hours -Hypoglycemia protocol intact -Referral to dietitian ?Monitor vital signs -Consulted GI appreciate recommendations # Gross hematuria -Patient has Wilson catheter, hematuria possibly secondary to tugging on catheter. -Will continue to monitor. # Sepsis # Pneumonia, CAP vs aspiration -Patient hypothermic, WBC count 13.9, SIRS 2/4 -Patient was given ceftriaxone in ED, was given Zosyn later -CXR read recommended lateral view follow-up to best exclude pneumonia left base, but unable as patient cannot be transported. -Blood culture urine culture negative repeat urine culture pending -Continue ceftriaxone and azithromycin (10/10- # Chronic normocytic anemia -Monitor CBC in a.m. # Hypoosmolar hyponatremia, resolved DVT prophylaxis: Heparin every 12 GI prophylaxis: IV Protonix Diet: Tube feedings 20 cc/h Lines: Peripheral IV Code status: Full code Case discussed with Attending Dr. Shea and Dr. Flores PGY3. Zulma Alcaraz PGY1 Attending Provider Attestation/Addendum I have discussed and was present for the essential components of the history, physical examination, diagnosis, and treatment plan with the resident. I agree with the patient's care as documented by the resident and amended herein by me. Leon Shea, DO. Patient seen and evaluated this AM. Patient more mobile today, appears to be improved. Vital signs stable, patient afebrile overnight, body temperature within normal limits this morning. Labs largely unremarkable however the patient was tugging on his Wilson catheter per nursing staff, the urine was red- tinged today, likely secondary to trauma, will continue Wilson catheter for now and monitor, may possibly removed tomorrow if the urine clears. Will continue ceftriaxone and azithromycin for now, blood cultures negative, urine cultures pending, tube feeds will resume per dietitian recommendations. Will continue to monitor closely, likely DC on 1118 pending further improvement. Although this document has been carefully reviewed, there may still be some phonetic and other typographical errors. These errors are purely grammatical due to imperfections in the software program and should not be construed in any way to compromise the substance of the patient's medical care during this visit.
--- NOTE | 2024-10-12 19:25 | PD.IMPROG ---
Documentation for date of: 10/12/24 Subjective Subjective Interval history: No drainage at the PEG site Moved out of the ICU Exam Vital Signs Temp Pulse Resp BP Pulse Ox O2 Del Method O2 Flow Rate 96.9 F 61 16 133/82 H 96 Room Air 3 10/12/24 16:04 10/12/24 16:04 10/12/24 16:04 10/12/24 16:04 10/12/24 16:04 10/12/24 16:04 10/12/24 16:04 Objective Labs 10/12/24 05:42 10/12/24 05:42 Labs: Laboratory Results - last 24 hr 10/12/24 05:42 WBC 8.8 D RBC 3.75 L Hgb 11.5 L Hct 32.1 L MCV 86 MCH 30.7 MCHC 35.8 RDW Std Deviation 43.3 Plt Count 130 L Neut % (Auto) 85 H Lymph % (Auto) 6 L [place] % (Auto) 8 Eos % (Auto) 1 Baso % (Auto) 0 Neut # (Auto) 7.5 Lymph # (Auto) 0.5 L [place] # (Auto) 0.7 Eos # (Auto) 0.1 Baso # (Auto) 0.0 Immature Gran # (Auto) 0.03 H Absolute Nucleated RBC 0.00 Immature Gran % 0 Nucleated RBC % 0 PT 10.9 INR 1.0 Sodium 136 Potassium 3.4 Chloride 101 Carbon Dioxide 29.1 Anion Gap 6 L BUN 16 Creatinine 0.9 Estim Creat Clear Calc 42.4 L eGFR > 60 BUN/Creatinine Ratio 18 Glucose 103 Calculated Osmolality 273 L Calcium 9.0 Corrected Calcium 9.4 Phosphorus 2.9 Total Bilirubin 0.4 AST 35 H ALT 44 Alkaline Phosphatase 108 Total Protein 5.4 L Albumin 3.5 Globulin 1.9 L Albumin/Globulin Ratio 1.8 Impressions Impression: # Failure to thrive # Status postplacement of a PEG tube Enteral feeding to continue Assessment & Plan A&P Narrative # Failure to thrive Patient not eating at all as per the audio visual project manager Appropriate consent will be obtained from the appropriate authorities for percutaneous endoscopic gastrostomy tube insertion via fiberoptic esophagogastroduodenoscopy under intravenous moderate sedation scheduled for tomorrow N.p.o. 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
[2024-10-12] MEDS: MULTIVITAMIN 15 ML UDC GT (22:40)
[2024-10-13] VITALS (12 sets, daily range): BP systolic 119–149; BP diastolic 72–98; PULSE 49–84; RESP 16–21; TEMP 29.1–36.8; O2SAT 97–99; BMI 19.2
--- NOTE | 2024-10-13 03:59 | EVENTNT_ITS ---
<Statement entered by Waldo Sanders MD - 10/13/24 06:39> I was present for the essential components of the history, physical examination, diagnosis, and treatment plan with the resident. I have reviewed the documentation, discussed the case with the resident and agree with the patient's care as documented by the resident. Waldo Sanders MD Documentation for date of: 10/13/24 Event Note Event Note: Rapid response was called due to hypothermia, on arrival temperature was 84.3F, patient was saturating 100% in room air, pulse was 49, respiratory rate of 18. Will upgrade patient to telemetry, will start Bear hugger and will monitor temperature. If no improvement,will transfer patient to ICU for warming IVF. Patient care was discussed with attending physician Dr. Sanders. Cristina Butler MD PGY-2 I have carefully reviewed this document. Due to imperfections in the voice software, there could be grammatical errors including phonetic/typographic errors. This in no way compromises the medical care the patient is receiving
[2024-10-13 06:34] LABS: Phosphorous 2.9 mg/dL (2.4-5.1)
[2024-10-13 08:08] LABS: Creatine Kinase 236 U/L (34-171)
[2024-10-13 08:14] LABS: Alanine Aminotransferase 50 U/L (10-49); Albumin, Serum 3.6 gm/dL (3.4-4.8); Alkaline Phosphatase 117 U/L (46-116); Anion Gap 7 (7-16); Aspartate Amino Transferase 46 U/L (0-34); BUN/Creatinine Ratio 25 Ratio (12-20); Bilirubin,Total 0.4 mg/dL (0.3-1.2); Blood Urea Nitrogen 15 mg/dL (9-23); Calcium 8.9 mg/dL (8.3-10.6); Calcium (Corrected) 9.2 mg/dL (8.5-10.1); Chloride 101 mMol/L (98-107); Creatinine (Component) 0.6 mg/dL (0.6-1.3); Estimated Creatinine Clearance 63.6 mL/min (>60); Globulin 1.8 gm/dL (2.3-3.5); Glucose 110 mg/dL (74-106); Osmolality,Calculated 271 (275-295); Potassium 3.9 mMol/L (3.4-5.1); Sodium 135 mMol/L (136-145); Total Protein 5.4 gm/dL (5.7-8.2); eGFR > 60 See Note
--- NOTE | 2024-10-13 08:57 | PC.SS ---
Update: Patient was upgraded to ICU over the weekend due to hypothermia. Patient has been downgraded from ICU and transitioned to Tele floor.
[2024-10-13] MEDS: THIAMINE 100 MG TABLET GT (09:16)
[2024-10-13] MEDS: PANTOPRAZOLE INJ 40 MG VIAL IVP (09:16)
[2024-10-13] MEDS: cefTRIAXone/D5w 1gm IV premix 50 ML IV (09:16)
[2024-10-13 09:28] LABS: Basophils % (Auto) 0 % (0-2.5); Eosinophils # (Auto) 0.2 Thou/mm3 (0.0-0.5); Eosinophils % (Auto) 3 % (0-10); Hematocrit 32.8 % (41.0-53.0); Hemoglobin 11.6 g/dL (13.5-16.0); Immature Granulocytes % (Auto) 0 % (0-0); Immature Granulocytes Auto 0.02 Thou/mm3 (0.00-0.00); Lymphocytes # (Auto) 0.4 Thou/mm3 (1.0-4.8); Lymphocytes % (Auto) 8 % (10-50); Mean Corpuscular HGB Conc 35.4 g/dl (31.0-37.0); Mean Corpuscular Hemoglobin 30.2 pg (25.0-35.0); Mean Corpuscular Volume 85 fL (80-100); Monocytes # (Auto) 0.5 Thou/mm3 (0.0-0.8); Monocytes % (Auto) 10 % (0-12); Neutrophils # (Auto) 4.1 Thou/mm3 (1.8-7.7); Neutrophils % (Auto) 78 % (37-80); Nucleated Red Blood Cell % 0 /100 WBC (0); Platelet Count 115 Thou/mm3 (140-440); RDW Standard Deviation 43.1 fL (35.1-43.9); Red Blood Count 3.84 Miln/mm3 (4.50-5.90); White Blood Count 5.3 Thou/mm3 (3.8-10.6)
[2024-10-13] MEDS: SODIUM CHLORIDE 0.9% 1000 ML 1,000 ML 999 ML IV (10:35)
[2024-10-13] MEDS: AZITHROMYCIN INJ 250 MG in SODIUM CHLORIDE 0.9% 250 ML 250 ML IV (10:46)
--- NOTE | 2024-10-13 10:54 | PC.SS ---
Update: blood present in the patient's urine, not medically cleared for discharge.
--- NOTE | 2024-10-13 12:37 | PC.SS ---
LITIGATION ASSOCIATE informed by attending plan for patient to discharge back to adult halfway with hospice. Discharge date is pending. Attending has confirmed plan with [facility] physician Dr. Worrell.
--- NOTE | 2024-10-13 12:48 | PC.SS ---
DIRECTOR OF PULMONARY UNIT contacted patient's [facility] staff person, Carter Dong ; to provide update plan to discharge patient back to adult senior care with hospice services. DIRECTOR OF PULMONARY UNIT informed [facility] staff that [facility] hospice on rotation for referral. [facility] staff confirmed plan to submit hospice referral to [facility].
--- NOTE | 2024-10-13 13:05 | ESPR_ITS ---
<Statement entered by Lindy Flores MD - 10/14/24 07:33> Senior Resident Attestation: I supervised/discussed management plan with resident physician Dr. Alcaraz, and was involved in the care of this patient. I personally saw and examined the patient and discussed the assessment and plan with the entire medicine team, including my attending. I agree with the assessment and plan as documented. Patient's care was discussed with attending physician, Dr. Shabbir Flores MD PGY-3 Documentation for date of: 10/13/24 Subjective Subjective Interval history: Patient seen at bedside Patient had rapid response called yesterday evening for hypothermia Patient's temperature was 84.3, patient was moved to telemetry and started on Juan hugger and patient's temperature started improving Temperature this morning was 96.4. Patient's tube feeds will be resumed at 10 cc/h due to concern of residual, discussed with dietitian Resumed free water flushes Will continue to check temperature every 4 hours Will reach out to Dr. Worrell patient's primary decision-maker to discuss patient's prognosis. 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 Objective Labs 10/13/24 05:31 10/13/24 05:31 Labs: Laboratory Results - last 24 hr 10/13/24 05:31 WBC 5.3 RBC 3.84 L Hgb 11.6 L Hct 32.8 L MCV 85 MCH 30.2 MCHC 35.4 RDW Std Deviation 43.1 Plt Count 115 L Neut % (Auto) 78 Lymph % (Auto) 8 L [place] % (Auto) 10 Eos % (Auto) 3 Baso % (Auto) 0 Neut # (Auto) 4.1 Lymph # (Auto) 0.4 L [place] # (Auto) 0.5 Eos # (Auto) 0.2 Baso # (Auto) 0.0 Immature Gran # (Auto) 0.02 H Absolute Nucleated RBC 0.00 Immature Gran % 0 Nucleated RBC % 0 Sodium 135 L Potassium 3.9 D Chloride 101 Carbon Dioxide 27.0 Anion Gap 7 BUN 15 Creatinine 0.6 Estim Creat Clear Calc 63.6 eGFR > 60 BUN/Creatinine Ratio 25 H Glucose 110 H Calculated Osmolality 271 L Calcium 8.9 Corrected Calcium 9.2 Phosphorus 2.9 Magnesium 2.0 Total Bilirubin 0.4 AST 46 H ALT 50 H Alkaline Phosphatase 117 H Total Creatine Kinase 236 H D Total Protein 5.4 L Albumin 3.6 Globulin 1.8 L Albumin/Globulin Ratio 2.0 Quality Measures Quality Measures none Advance care planning discussed with:: legal surragate Assessment & Plan Assessment Current Active Medications: Generic Name Dose Route Start Last Admin Trade Name Freq PRN Reason Stop Dose Admin Acetaminophen 650 mg 10/09/24 20:35 Acetaminophen Supp 650 Mg Supp [place] 11/08/24 20:34 Q6HR PRN Fever > 100.4 Dextrose 25 ml 10/11/24 04:41 Dextrose 50%-Water Inj 50 Ml Syringe IV 11/10/24 04:40 Q15MIN PRN BG 50-70 responsive npo pt Dextrose 50 ml 10/11/24 04:41 Dextrose 50%-Water Inj 50 Ml Syringe IV 11/10/24 04:40 Q15MIN PRN BG <50 OR BG <70 & pt unresponsive Glucagon 1 mg 10/11/24 04:41 Glucagon Inj 1 Mg Vial IM Q15MIN PRN BG <70, and no IV access Heparin Sodium (Porcine) 5,000 unit 10/09/24 21:00 10/12/24 22:40 Heparin Sod Inj 5000 Unit/Ml Vial SC 10/23/24 20:59 5,000 unit Q12HR PHYLICIA Administration Ceftriaxone Sodium/Dextrose 50 mls @ 100 mls/hr 10/10/24 08:55 10/13/24 09:16 Rocephin/D5w 1gm Iv Premix IV 10/17/24 08:54 100 mls/hr QDAY PHYLICIA Administration Azithromycin 250 mg/ Sodium 250 mls @ 250 mls/hr 10/13/24 09:45 10/13/24 10:46 Chloride IV 10/15/24 09:44 250 mls/hr QDAY HPYLICIA Administration Multivitamins/Minerals 15 ml 10/10/24 21:00 10/12/24 22:40 Multivitamin 15 Ml Udc GT 11/09/24 20:59 15 ml HS PHYLICIA Administration Ondansetron HCl 4 mg 10/09/24 20:37 Ondansetron Inj 2 Mg/Ml Inj 2 Ml IV 11/08/24 20:36 Q6H PRN NAUSEA OR VOMITING Protocol Pantoprazole Sodium 40 mg 10/11/24 09:00 10/13/24 09:16 Pantoprazole Inj 40 Mg Vial IVP 11/10/24 08:59 40 mg QDAY PHYLICIA Administration Pharmacy Consult 1 each 10/10/24 03:48 Pharmacy To Consult Pneumovacc XX 11/09/24 03:47 PRN PRN CONSULT Thiamine HCl 100 mg 10/11/24 09:00 10/13/24 09:16 Thiamine 100 Mg Tablet GT 11/10/24 08:59 100 mg QDAY PHYLICIA Administration Plan Assessment and Plan: Summary: 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 intake for the last week. Has become less interactive per tungsten tender and is cool to touch.BMI 17.9. Difficult to ascertain etiologies given patient's inability to communicate. Symptoms likely due to significantly decreased p.o. intake, unlikely infectious etiology but cannot definitely be ruled out. TSH 0.94. Patient was given 2 L NS primer inserting machine adjuster ED, was in Juan hugger, eventually patient's temperature improved to within normal limits. Patient was upgraded to ICU after PEG tube placement due to hypothermia, patient was put on Juan hugger, was given warm NS. Downgraded after hypothermia resolved. Patient's hypothermia likely secondary to extension of tumor into hypothalamus and brain tissue as per patient's CT Plan: -Continue Juan hugger if temperature drops -Feeding resumed at 10 cc/h -Started on D5LR 65 cc/h due to hypoglycemia -Patient was given 1 L bolus -Strict intake and output -Fingerstick blood glucose every 4 hours -Hypoglycemia protocol intact -Referral to dietitian ?Monitor vital signs -Consulted GI appreciate recommendations # Gross hematuria Patient did not have Wilson catheter at facility per patient's nurse. -Patient has Wilson catheter, hematuria possibly secondary to tugging on catheter. -Patient was given 1 L bolus, will continue to monitor patient for hematuria -Will hold heparin subcutaneous -Started on SCDs for DVT prophylaxis # Sepsis # Pneumonia, CAP vs aspiration -Patient hypothermic, WBC count 13.9, SIRS 2/ -Patient was given ceftriaxone in ED, was given Zosyn later -CXR read recommended lateral view follow-up to best exclude pneumonia left base, but unable as patient cannot be transported. -Blood culture urine culture negative repeat urine culture pending -Continue ceftriaxone and azithromycin (10/10- # Chronic normocytic anemia -Monitor CBC in a.m. # Hypoosmolar hyponatremia, resolved DVT prophylaxis: SCDs, discontinued heparin GI prophylaxis: IV Protonix Diet: Tube feedings 10 cc/h Lines: Peripheral IV Code status: Full code Case discussed with Attending Dr. Shea and Dr. Flores PGY3. Zulma Alcaraz PGY1 Attending Provider Attestation/Addendum I have discussed and was present for the essential components of the history, physical examination, diagnosis, and treatment plan with the resident. I agree with the patient's care as documented by the resident and amended herein by me. Leon Shea, DO. Patient seen and evaluated this AM. Patient still hypothermic overnight with a lowest recorded rate of approximately 84, Juan hugger applied the patient's temperature readily improves. Will give fluids today as the patient is still demonstrating hematuria through Wilson, likely from trauma when the patient did pull on his Wilson catheter, no clots seen in bag however will consider CBI if it worsens. Will continue IV antibiotics, ceftriaxone azithromycin for pneumonia, cortisol and CK ordered, PEG tube in place, the rate was a little high, will restarted 10 cc/h at the present time. Of note, I did speak with the patient's facility director, Dr. Worrell today who is the patient's conservator. The patient was made DNR/DNI as a result of this conversation, it was also discussed the patient should proceed on hospice care upon discharg. adz worker notified, will continue to monitor closely while he is here. Likely discharge in 1 to 2 days pending improvement however I do not know if the patient's hypothermia will be completely resolved due to the fact the patient's left orbital mass is extending into the parasellar region which may be affecting hypothalamic function to include temperature regulation. Will continue to monitor closely Although this document has been carefully reviewed, there may still be some phonetic and other typographical errors. These errors are purely grammatical due to imperfections in the software program and should not be construed in any way to compromise the substance of the patient's medical care during this visit.
--- NOTE | 2024-10-13 14:21 | PC.SS ---
Addendum entered and electronically signed by CHELI Cardoza 10/13/24 14:41: Hospice referral submitted on [facility]. Original Note: Update: Patient to transition to hospice. Hospice order pending.
[2024-10-13] MEDS: DEXTROSE 5%-LACTATED RINGERS 1,000 ML 65 ML IV (17:45)
[2024-10-13] MEDS: MULTIVITAMIN 15 ML UDC GT (21:13)
[2024-10-14] VITALS (8 sets, daily range): BP systolic 109–139; BP diastolic 75–96; PULSE 69–88; RESP 16–23; TEMP 36.2–37.8; O2SAT 96–97
--- NOTE | 2024-10-14 05:34 | PC.NURSE ---
temp at 0000 99.8 turned of jenna garcia at this time
[2024-10-14 06:26] LABS: Basophils % (Auto) 0 % (0-2.5); Eosinophils # (Auto) 0.2 Thou/mm3 (0.0-0.5); Eosinophils % (Auto) 4 % (0-10); Hematocrit 30.1 % (41.0-53.0); Hemoglobin 10.7 g/dL (13.5-16.0); Immature Granulocytes % (Auto) 0 % (0-0); Immature Granulocytes Auto 0.02 Thou/mm3 (0.00-0.00); Lymphocytes # (Auto) 0.3 Thou/mm3 (1.0-4.8); Lymphocytes % (Auto) 7 % (10-50); Mean Corpuscular HGB Conc 35.5 g/dl (31.0-37.0); Mean Corpuscular Volume 84 fL (80-100); Monocytes # (Auto) 0.4 Thou/mm3 (0.0-0.8); Monocytes % (Auto) 9 % (0-12); Neutrophils # (Auto) 3.6 Thou/mm3 (1.8-7.7); Neutrophils % (Auto) 79 % (37-80); Nucleated Red Blood Cell % 0 /100 WBC (0); Platelet Count 120 Thou/mm3 (140-440); RDW Standard Deviation 42.7 fL (35.1-43.9); Red Blood Count 3.57 Miln/mm3 (4.50-5.90); White Blood Count 4.6 Thou/mm3 (3.8-10.6)
[2024-10-14 07:13] LABS: Alanine Aminotransferase 33 U/L (10-49); Albumin, Serum 3.5 gm/dL (3.4-4.8); Albumin/Globulin Ratio 1.8 (1.2-2.2); Alkaline Phosphatase 103 U/L (46-116); Anion Gap 6 (7-16); Aspartate Amino Transferase 23 U/L (0-34); BUN/Creatinine Ratio 14 Ratio (12-20); Bilirubin,Total 0.4 mg/dL (0.3-1.2); Blood Urea Nitrogen 11 mg/dL (9-23); Calcium (Corrected) 9.4 mg/dL (8.5-10.1); Carbon Dioxide 27.4 mMol/L (20.0-31.0); Chloride 101 mMol/L (98-107); Creatinine (Component) 0.8 mg/dL (0.6-1.3); Estimated Creatinine Clearance 49.4 mL/min (>60); Globulin 1.9 gm/dL (2.3-3.5); Glucose 102 mg/dL (74-106); Magnesium 1.6 mg/dL (1.6-2.6); Osmolality,Calculated 267 (275-295); Phosphorous 3.4 mg/dL (2.4-5.1); Potassium 3.3 mMol/L (3.4-5.1); Sodium 134 mMol/L (136-145); Total Protein 5.4 gm/dL (5.7-8.2); eGFR > 60 See Note
[2024-10-14] MEDS: cefTRIAXone/D5w 1gm IV premix 50 ML IV (08:21)
[2024-10-14] MEDS: PANTOPRAZOLE INJ 40 MG VIAL IVP (08:29)
[2024-10-14] MEDS: THIAMINE 100 MG TABLET GT (08:35)
[2024-10-14] MEDS: POTASSIUM CHLORIDE 10% 20 MEQ/15 ML UDC 40 MEQ GT (08:39)
--- NOTE | 2024-10-14 08:52 | PC.SS ---
MOTORCYCLE REPAIR SHOP SUPERVISOR met at bed side with patient's [facility] rock crushing machine operator, Olamide Garza , she informs patient does not require any DME at this time. Plan is to discharge the patient back to [facility] under [facility]. Olamide informed they are able to transport the patient via disabled handicapped accessible van if appropriate at the time of discharge. Olamide also shared patient is unable to discharge until she received hospice waiver from [facility] licensing. Olamide informed this may take up to 2-3 days to obtain. Until then patient is unable to discharge to [facility] with hospice services. Bed side nurse present and resident Dr. Vargas was updated.
[2024-10-14] MEDS: AZITHROMYCIN INJ 250 MG in SODIUM CHLORIDE 0.9% 250 ML 250 ML IV (09:59)
[2024-10-14] MEDS: Magnesium Sulfate 4 GM Ivpb 4 GM/50 ML BAG IV (11:36)
--- NOTE | 2024-10-14 12:10 | PD.RESPRO ---
Documentation for date of: 10/14/24 Subjective Subjective Interval history: Patient seen at bedside Patient temperature yesterday evening was 95.5. Patient was started on Juan hugger yesterday evening. Patient's tube feeds at 20 cc/h, will advance to 30 cc/h Resumed free water flushes Will continue to check temperature every [address] Worrell yesterday in detail, patient's CODE STATUS changed to DNR/DNI. Anticipate discharge to hospice. 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 Objective Labs 10/14/24 04:53 10/14/24 04:53 Labs: Laboratory Results - last 24 hr 10/14/24 04:53 WBC 4.6 RBC 3.57 L Hgb 10.7 L Hct 30.1 L MCV 84 MCH 30.0 MCHC 35.5 RDW Std Deviation 42.7 Plt Count 120 L Neut % (Auto) 79 Lymph % (Auto) 7 L Steele % (Auto) 9 Eos % (Auto) 4 Baso % (Auto) 0 Neut # (Auto) 3.6 Lymph # (Auto) 0.3 L Steele # (Auto) 0.4 Eos # (Auto) 0.2 Baso # (Auto) 0.0 Immature Gran # (Auto) 0.02 H Absolute Nucleated RBC 0.00 Immature Gran % 0 Nucleated RBC % 0 Sodium 134 L Potassium 3.3 L D Chloride 101 Carbon Dioxide 27.4 Anion Gap 6 L BUN 11 Creatinine 0.8 Estim Creat Clear Calc 49.4 L eGFR > 60 BUN/Creatinine Ratio 14 Glucose 102 Calculated Osmolality 267 L Calcium 9.0 Corrected Calcium 9.4 Phosphorus 3.4 Magnesium 1.6 Total Bilirubin 0.4 AST 23 ALT 33 Alkaline Phosphatase 103 Total Protein 5.4 L Albumin 3.5 Globulin 1.9 L Albumin/Globulin Ratio 1.8 Quality Measures Quality Measures none Advance care planning discussed with:: legal surragate Assessment & Plan Assessment Current Active Medications: Generic Name Dose Route Start Last Admin Trade Name Freq PRN Reason Stop Dose Admin Acetaminophen 650 mg 10/09/24 20:35 Acetaminophen Supp 650 Mg Supp NH 11/08/24 20:34 Q6HR PRN Fever > 100.4 Dextrose 25 ml 10/11/24 04:41 Dextrose 50%-Water Inj 50 Ml Syringe IV 11/10/24 04:40 Q15MIN PRN BG 50-70 responsive npo pt Dextrose 50 ml 10/11/24 04:41 Dextrose 50%-Water Inj 50 Ml Syringe IV 11/10/24 04:40 Q15MIN PRN BG <50 OR BG <70 & pt unresponsive Glucagon 1 mg 10/11/24 04:41 Glucagon Inj 1 Mg Vial IM Q15MIN PRN BG <70, and no IV access Heparin Sodium (Porcine) 5,000 unit 10/09/24 21:00 10/12/24 22:40 Heparin Sod Inj 5000 Unit/Ml Vial SC 10/23/24 20:59 5,000 unit Q12HR PHYLICIA Administration Ceftriaxone Sodium/Dextrose 50 mls @ 100 mls/hr 10/10/24 08:55 10/14/24 08:21 Rocephin/D5w 1gm Iv Premix IV 10/17/24 08:54 100 mls/hr QDAY PHYLICIA Administration Azithromycin 250 mg/ Sodium 250 mls @ 250 mls/hr 10/13/24 09:45 10/14/24 09:59 Chloride IV 10/15/24 09:44 250 mls/hr QDAY PHYLICIA Administration Multivitamins/Minerals 15 ml 10/10/24 21:00 10/13/24 21:13 Multivitamin 15 Ml Udc GT 11/09/24 20:59 15 ml HS PHYLICIA Administration Ondansetron HCl 4 mg 10/09/24 20:37 Ondansetron Inj 2 Mg/Ml Inj 2 Ml IV 11/08/24 20:36 Q6H PRN NAUSEA OR VOMITING Protocol Pantoprazole Sodium 40 mg 10/11/24 09:00 10/14/24 08:29 Pantoprazole Inj 40 Mg Vial IVP 11/10/24 08:59 40 mg QDAY PHYLICIA Administration Pharmacy Consult 1 each 10/10/24 03:48 Pharmacy To Consult Pneumovacc XX 11/09/24 03:47 PRN PRN CONSULT Thiamine HCl 100 mg 10/11/24 09:00 10/14/24 08:35 Thiamine 100 Mg Tablet GT 11/10/24 08:59 100 mg QDAY PHYLICIA Administration Plan Assessment and Plan: Summary: 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 #Failure to thrive #Protein calorie malnutrition #Hypoproteinemia #Status post PEG tube placement #Hypoglycemia Presents with significantly decreased p.o. intake for the last week. Has become less interactive per associate director career services and is cool to touch. BMI 17.9. Difficult to ascertain etiologies given patient's inability to communicate. Symptoms likely due to significantly decreased p.o. intake, unlikely infectious etiology but cannot definitely be ruled out. TSH 0.94. Plan: -Tube feeding at 20 cc/h, will advance to 30 cc later today. -Strict intake and output -Fingerstick blood glucose every 4 hours -Hypoglycemia protocol intact -Referral to dietitian ?Monitor vital signs -Consulted GI appreciate recommendations #Hypothermia #Left orbit soft tissue mass Patient was given 2 L NS group reservations coordinator ED, was in Juan hugger, eventually patient's temperature improved to within normal limits. Patient was upgraded to ICU after PEG tube placement due to hypothermia, patient was put on Juan hugger, was given warm NS. Downgraded after hypothermia resolved. Patient's hypothermia likely secondary to extension of tumor into hypothalamus and brain tissue as per patient's CT Plan: -Will resume Juan hugger if temperature drops -Monitor temperature closely -Consider checking rectal temperature if temperature is low -Follow cortisol levels # Gross hematuria, improving Patient did not have Wilson catheter at facility per patient's nurse. -Patient has Wilson catheter, hematuria possibly secondary to tugging on catheter. -Patient was given 1 L bolus yesterday, hematuria has improved -Will hold heparin subcutaneous -Started on SCDs for DVT prophylaxis # Sepsis # Pneumonia, CAP vs aspiration -Patient hypothermic, WBC count 13.9, SIRS 2/4 -Patient was given ceftriaxone in ED, was given Zosyn later -CXR read recommended lateral view follow-up to best exclude pneumonia left base, but unable as patient cannot be transported. -Blood culture urine culture negative repeat urine culture pending -Continue ceftriaxone and azithromycin (10/10- # Chronic normocytic anemia -Monitor CBC in a.m. # Hypoosmolar hyponatremia, resolved DVT prophylaxis: SCDs GI prophylaxis: IV Protonix Diet: Tube feedings 20 cc/h Lines: Peripheral IV Code status: Full code Case discussed with Attending Dr. Guerra. Zulma Alcaraz PGY1 Attending Provider Attestation/Addendum I reviewed labs, imaging, EKG, home medications and prior available records. Face to face evaluation was performed by me. I have personally examined the patient and discussed assessment and plan with the IM team. I reviewed the resident note and agree with the plan with exceptions as below. Failure to thrive in adult: Discussed goals of care with Dr. Worrell. He is now DNR/DNI. Will discharge home with hospice once he tolerates her tube feeds. Currently he is on 30 cc/h. Goal is 40 cc/h. Hypothermia: Requiring ICU level of care and Juan hugger. Now downgraded and his temperature is WNL. Continue monitoring vital signs. Likely in the setting of expanding left orbital mass versus malnutrition.
[2024-10-14] MEDS: MULTIVITAMIN 15 ML UDC GT (20:03)
[2024-10-15] VITALS: BP 131/83; PULSE 64; RESP 20; TEMP 36.2; O2SAT 97
[2024-10-15 04:00] VITALS: BP 134/95; PULSE 58; RESP 18; TEMP 36.1; O2SAT 96
[2024-10-15 05:41] LABS: Basophils % (Auto) 0 % (0-2.5); Eosinophils # (Auto) 0.3 Thou/mm3 (0.0-0.5); Eosinophils % (Auto) 5 % (0-10); Hematocrit 32.9 % (41.0-53.0); Hemoglobin 11.7 g/dL (13.5-16.0); Immature Granulocytes % (Auto) 0 % (0-0); Immature Granulocytes Auto 0.02 Thou/mm3 (0.00-0.00); Lymphocytes # (Auto) 0.4 Thou/mm3 (1.0-4.8); Lymphocytes % (Auto) 6 % (10-50); Mean Corpuscular HGB Conc 35.6 g/dl (31.0-37.0); Mean Corpuscular Volume 84 fL (80-100); Monocytes # (Auto) 0.9 Thou/mm3 (0.0-0.8); Monocytes % (Auto) 13 % (0-12); Neutrophils # (Auto) 4.8 Thou/mm3 (1.8-7.7); Neutrophils % (Auto) 75 % (37-80); Nucleated Red Blood Cell % 0 /100 WBC (0); Platelet Count 122 Thou/mm3 (140-440); RDW Standard Deviation 42.1 fL (35.1-43.9); White Blood Count 6.4 Thou/mm3 (3.8-10.6)
[2024-10-15 06:00] VITALS: BMI 19.4
[2024-10-15 06:14] LABS: Alanine Aminotransferase 43 U/L (10-49); Albumin, Serum 3.7 gm/dL (3.4-4.8); Albumin/Globulin Ratio 1.8 (1.2-2.2); Alkaline Phosphatase 115 U/L (46-116); Anion Gap 6 (7-16); Aspartate Amino Transferase 53 U/L (0-34); BUN/Creatinine Ratio 19 Ratio (12-20); Bilirubin,Total 0.5 mg/dL (0.3-1.2); Blood Urea Nitrogen 13 mg/dL (9-23); Calcium 9.1 mg/dL (8.3-10.6); Calcium (Corrected) 9.3 mg/dL (8.5-10.1); Carbon Dioxide 26.9 mMol/L (20.0-31.0); Chloride 100 mMol/L (98-107); Creatinine (Component) 0.7 mg/dL (0.6-1.3); Estimated Creatinine Clearance 55.1 mL/min (>60); Globulin 2.1 gm/dL (2.3-3.5); Glucose 99 mg/dL (74-106); Magnesium 2.2 mg/dL (1.6-2.6); Osmolality,Calculated 266 (275-295); Potassium 3.7 mMol/L (3.4-5.1); Sodium 133 mMol/L (136-145); Total Protein 5.8 gm/dL (5.7-8.2); eGFR > 60 See Note
[2024-10-15 08:00] VITALS: BP 146/80; PULSE 53; PULSE 55; RESP 14; TEMP 36; O2SAT 98
[2024-10-15] MEDS: PANTOPRAZOLE INJ 40 MG VIAL IVP (08:24)
[2024-10-15] MEDS: cefTRIAXone/D5w 1gm IV premix 50 ML IV (08:24)
[2024-10-15] MEDS: THIAMINE 100 MG TABLET GT (08:25)
[2024-10-15] MEDS: AZITHROMYCIN INJ 250 MG in SODIUM CHLORIDE 0.9% 250 ML 250 ML IV (08:43)
[2024-10-15 10:16] LABS: Phosphorous 4.4 mg/dL (2.4-5.1)
--- NOTE | 2024-10-15 10:51 | PC.SS ---
Addendum entered by CHELI Mendoza 10/15/24 11:45: Updated bed side nurse. Addendum entered by CHELI Mendoza 10/15/24 11:44: Spoke with Olamide she informs we are pending hospice waiver at this time. Updated Mini from [facility]. Original Note: Attempted contact with fpc tractor distributor, Olamide Garza , to follow up on hospice waiver. No answer and left a voicemail.
[2024-10-15 11:38] VITALS: BMI 19.4
[2024-10-15 12:00] VITALS: BP 136/83; PULSE 50; PULSE 55; RESP 17; TEMP 35.8; O2SAT 99
--- NOTE | 2024-10-15 13:53 | ESDS_ITS ---
<Statement entered by Rae Man DO - 10/16/24 14:36> I, Rae Man DO, attest that I was physically present for the bonds portions of the service and evaluated the patient with the resident and I reviewed and discussed the case with the resident and agree with the resident's findings and plans of care as documented above Planned Discharge Date 10/15/24 DS: Providers Provider Date of admission: 10/09/24 20:28 Primary care physician: Dionte No MD Admitting Provider: Darrian Hawkins MD Attending Provider on Admission: Rae Man DO Consults: 10/09/24 17:25 Consult to Gastroenterology Stat Comment: Per G-tube placement failure to thrive Consulting Provider: Glenn Evans 10/10/24 03:49 Referral Infection Control Stat Comment: Reason for Infection Control Referral: Multiple ABX (>2) Referral Registered Dietitian Stat Comment: 10/10/24 19:37 Referral Registered Dietitian Routine Comment: Instructions: new PEG tube, may start feedings now Attending Provider on DC: Rae Man DO Discharging Provider: Rae Man DO DS: Diagnosis Problem List Completed Was Problem List Reviewed/Reconciled?: Yes Hospital Course Hospital Course Hospital course: Hospital Course: Mr. 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 Patient was put on a Juan hugger and was given warm NS, eventually patient's temperature improved, patient had multiple episodes of hypothermia during the hospital stay, possibly likely due to extension of orbital mass. Gastroenterology was consulted, patient had PEG tube placement and was started on tube feeds, patient eventually transition to goal tube feeds, increased gradually to reduce the risk of refeeding syndrome. Goals of care discussion had with patient's primary decision maker Dr. Worrell, patient's CODE STATUS was changed to DNR and decision was made to discharge patient home on hospice care. Patient is stable for discharge. Discharge Diagnosis: #Failure to thrive #Protein calorie malnutrition #Hypoproteinemia #Status post PEG tube placement #Hypoglycemia #Hypothermia #Left orbit soft tissue mass # Gross hematuria, improving # Sepsis # Pneumonia, CAP vs aspiration # Chronic normocytic anemia # Hypoosmolar hyponatremia, resolved Case discussed with Attending Dr. Man. 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 Discharge Plan Plan Patient Disposition: Home w/HOSPICE Patient condition on transfer: Benefits outweigh risks Care Plan Goals: Discharge Home on Hospice Care. Prescriptions/Referrals Prescriptions/Med Rec: No Action olanzapine 10 mg tablet 10 mg PO QDAY Patient Comments: TAKE ONE TABLET BY MOUTH DAILY AT 0800 omeprazole 20 mg capsule,delayed release(DR/EC) 20 mg PO QDAY buspirone 15 mg tablet 15 mg PO TID calcium carbonate-vitamin D3 600 mg-10 mcg (400 unit) tablet 1 tab PO BID levocetirizine 5 mg tablet 5 mg PO HS fluvoxamine 100 mg tablet 100 mg PO BID triamcinolone acetonide 0.1 % ointment 1 applic TOPICAL 4XD polyethylene glycol 3350 [ClearLax] 17 gram/dose powder 17 g PO DAILY melatonin 5 mg Tablet 5 mg PO HS PRN (Reason: Insomnia) Referrals: Dionte No MD [Primary Care Provider] - Patient/Caregiver Discharge Instructions Education Materials: Understanding PEG Tube Feeding Print Language: Bulgarian Stand Alone Forms: Taplet Award Info., Patient Portal Info Letter Discharge Order Discharge Orders: Discharge (Routine); Ordered 10/15/24 Ordered By: Zulma Alcaraz Quality Discharge Quality Measures VTE prophylaxis
--- NOTE | 2024-10-15 14:26 | PC.SS ---
Addendum entered by CHELI Mendoza 10/15/24 15:30: Spoke with [facility] hr coordinator, Olamide Garza , to follow up on hospice waiver and she informed it has not been obtained yet. Likely tomorrow. Updated bed side nurse and attending. Plan for discharge tomorrow with [facility] hospice. Original Note: Rounding note: pending hospice waiver to discharge back to [facility] with [facility]. May take 1-2 days to be obtained.
[2024-10-15 16:00] VITALS: BP 126/78; PULSE 61; PULSE 63; RESP 16; TEMP 36.1; O2SAT 98
[2024-10-15 20:00] VITALS: BP 151/98; PULSE 62; RESP 16; TEMP 35.6; O2SAT 98
[2024-10-15] MEDS: MULTIVITAMIN 15 ML UDC GT (20:47)
[2024-10-16] VITALS: BP 146/88; PULSE 60; RESP 17; TEMP 35.3; O2SAT 98
[2024-10-16 04:00] VITALS: BP 149/97; PULSE 56; RESP 20; TEMP 35.4; O2SAT 98
[2024-10-16 06:00] VITALS: BMI 19.4
[2024-10-16 06:12] LABS: Basophils % (Auto) 0 % (0-2.5); Eosinophils # (Auto) 0.6 Thou/mm3 (0.0-0.5); Eosinophils % (Auto) 9 % (0-10); Hematocrit 34.1 % (41.0-53.0); Hemoglobin 11.9 g/dL (13.5-16.0); Immature Granulocytes % (Auto) 1 % (0-0); Immature Granulocytes Auto 0.03 Thou/mm3 (0.00-0.00); Lymphocytes # (Auto) 0.3 Thou/mm3 (1.0-4.8); Lymphocytes % (Auto) 5 % (10-50); Mean Corpuscular HGB Conc 34.9 g/dl (31.0-37.0); Mean Corpuscular Hemoglobin 29.9 pg (25.0-35.0); Mean Corpuscular Volume 86 fL (80-100); Monocytes # (Auto) 0.7 Thou/mm3 (0.0-0.8); Monocytes % (Auto) 11 % (0-12); Neutrophils # (Auto) 4.7 Thou/mm3 (1.8-7.7); Neutrophils % (Auto) 74 % (37-80); Nucleated Red Blood Cell % 0 /100 WBC (0); Platelet Count 141 Thou/mm3 (140-440); RDW Standard Deviation 41.2 fL (35.1-43.9); Red Blood Count 3.98 Miln/mm3 (4.50-5.90); White Blood Count 6.3 Thou/mm3 (3.8-10.6)
[2024-10-16 06:57] LABS: Alanine Aminotransferase 68 U/L (10-49); Albumin, Serum 3.9 gm/dL (3.4-4.8); Albumin/Globulin Ratio 1.9 (1.2-2.2); Alkaline Phosphatase 130 U/L (46-116); Anion Gap 6 (7-16); Aspartate Amino Transferase 73 U/L (0-34); BUN/Creatinine Ratio 23 Ratio (12-20); Bilirubin,Total 0.4 mg/dL (0.3-1.2); Blood Urea Nitrogen 14 mg/dL (9-23); Calcium 9.5 mg/dL (8.3-10.6); Calcium (Corrected) 9.6 mg/dL (8.5-10.1); Carbon Dioxide 28.3 mMol/L (20.0-31.0); Chloride 100 mMol/L (98-107); Creatinine (Component) 0.6 mg/dL (0.6-1.3); Estimated Creatinine Clearance 64.1 mL/min (>60); Globulin 2.1 gm/dL (2.3-3.5); Glucose 108 mg/dL (74-106); Magnesium 1.9 mg/dL (1.6-2.6); Osmolality,Calculated 269 (275-295); Sodium 134 mMol/L (136-145); eGFR > 60 See Note
[2024-10-16 08:00] VITALS: BP 136/93; PULSE 54; RESP 17; TEMP 33.8; O2SAT 99
--- NOTE | 2024-10-16 09:06 | PC.SS ---
Addendum entered by CHELI Mendoza 10/16/24 13:02: Spoke with half-way seasonal clerk, Olamide Garza , she informs her staff can provide transportation for today's discharge. ETA 3:30pm. Olamide requesting formula recommendations. Notified attending and industrial arts teacher. Olamide informs she already has a heating blanket and heater for the patient. Bed side nurse was updated on ETA. Notified Mini with [facility] as well. Addendum entered by CHELI Mendoza 10/16/24 12:10: Mini from [facility] informed they are unable to provide a jenna hugger for the patient. Updated medical team. They are suggesting a heating blanket at this time. Addendum entered by CHELI Mendoza 10/16/24 11:21: Contacted Mini at [facility] to identify if they can provide patient with jenna hugger as he has been hypothermic. Mini informs she will ask her clinical software test manager and follow up after. Addendum entered by CHELI Mendoza 10/16/24 10:00: Hospice order sent to [facility] via [employer] Addendum entered by CHELI Mendoza 10/16/24 09:20: Attempted contact with Mini from [facility] to update, she was unavailable, voicemail provided. Addendum entered by CHELI Mendoza 10/16/24 09:09: Updated Dr. Alcaraz and requested hospice order and discharge summary for patient's caregiver to follow up with. Original Note: Spoke with half-way seasonal clerk, Olamide Garza , she informs hospice waiver was obtained and is able to accept the patient at the half-way today with [facility]. Olamide informs half-way transportation will be provided by their staff at time of discharge.
--- NOTE | 2024-10-16 09:11 | PC.NURSE ---
Spoke with Colt about pt's temperature being 92.9 rectally. Applied warm blankets to pt's body and head, checked temp rectally 20 minutes later with new temp being 92.6. Valencianba Alcaarz, will have pt transferred to [facility] for bear hunger warming measures
[2024-10-16] MEDS: THIAMINE 100 MG TABLET GT (09:13)
[2024-10-16] MEDS: LANSOPRAZOLE 30 MG TAB.RAP.DR GT (09:13)
[2024-10-16] MEDS: cefTRIAXone/D5w 1gm IV premix 50 ML IV (09:13)
[2024-10-16 13:01] VITALS: BP 127/83; PULSE 69; RESP 20; TEMP 35.1; O2SAT 98
--- NOTE | 2024-10-16 16:54 | ESDS_ITS ---
<Statement entered by Eduar Morrow DO - 10/16/24 19:35> Senior attestation: Patient was examined and case was reviewed with team including attending physician. Note reviewed, I agree with most of its contents and agree with the patient's care. Eduar Morrow DO PGY-3 Planned Discharge Date 10/16/24 DS: Providers Provider Date of admission: 10/09/24 20:28 Primary care physician: Dionte No MD Admitting Provider: Darrian Hawkins MD Attending Provider on Admission: Rae Man DO Consults: 10/09/24 17:25 Consult to Gastroenterology Stat Comment: Per G-tube placement failure to thrive Consulting Provider: Glenn Evans 10/10/24 03:49 Referral Infection Control Stat Comment: Reason for Infection Control Referral: Multiple ABX (>2) Referral Registered Dietitian Stat Comment: 10/10/24 19:37 Referral Registered Dietitian Routine Comment: Instructions: new PEG tube, may start feedings now 10/16/24 09:05 Referral Hospice Routine Comment: Attending Provider on DC: Jose Shea DO Discharging Provider: Jose Shea DO DS: Diagnosis Problem List Completed Was Problem List Reviewed/Reconciled?: Yes Hospital Course Hospital Course Hospital course: Patient's discharge was planned for 10/15, however was delayed because hospice care was not set up at patient's home. Patient will be discharged today with hospice care. Please see below for discharge summary. Hospital Course: Mr. 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 On admission patient was found to be hypothermic, was put on a Juan hugger and was given warm NS, patient met SIRS criteria and had pneumonia on chest x-ray, was started on IV antibiotics and eventually patient's temperature improved. Patient had multiple episodes of hypothermia during the hospital stay, possibly likely due to extension of orbital mass to hypothalamus and other regions of brain. Gastroenterology was consulted, patient had PEG tube placement and was started on tube feeds, patient eventually transition to goal tube feeds, increased gradually to reduce the risk of refeeding syndrome. 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 Worrell, and patient's CODE STATUS was changed to DNR, decision was made to discharge patient home on hospice care. Patient stable for discharge. Discharge Diagnosis: #Failure to thrive #Protein calorie malnutrition #Hypoproteinemia #Status post PEG tube placement #Hypoglycemia #Hypothermia secondary to #Left orbit soft tissue mass #Gross hematuria, improving #Sepsis, resolved #Pneumonia, CAP vs aspiration #Chronic normocytic anemia #Hypoosmolar hyponatremia, resolved Dietary Recommendations: Recommendations for outpatient (Bolus Feeds): Jevity 1.5 via PEG tube by bolus syringe: 8 oz (1 container) 4 times per day. Flush tube with 30 ml water before and after feeds. Water flushes 100 ml every 4 hours. Provides: 1420 kcal, 60 g prot, 720 ml free water, 948 ml total volume. If Jevity 1.5 is not covered by insurance, consider these alternatives: 1. Isosource 1.5 via PEG tube by bolus syringe: 8 oz (1 container) 4 times per day. Flush tube with 30 ml water before and after feeds. Water flushes 100 ml every 4 hours. Provides: 1500 kcal, 68 g prot, 764 ml free water, 1000 ml total volume. 2. [employer] Standard 1.4 via PEG tube by bolus syringe: 11 oz (1 container) 3 times per day. Flush tube with 30 ml water before and after feeds. Water flushes 100 ml every 4 hours. Provides: 1365 kcal, 60 g prot, 692 ml free water, 975 ml total volume. -Jevity 1.5 at 40 mL/h x 24 hours via PEG tube by pump (goal). If no IV fluids, water flushes 30 mL/h. -Thiamine 100 mg/day -Multivitamin/minerals Case discussed with Attending Dr. Shea and senior Dr Morrow PGY3. 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 Discharge Plan Plan Patient Disposition: Home w/HOSPICE Patient condition on transfer: Benefits outweigh risks Care Plan Goals: Discharge Home on Hospice Care. Prescriptions/Referrals Prescriptions/Med Rec: Continued olanzapine 10 mg tablet 10 mg PO QDAY Patient Comments: TAKE ONE TABLET BY MOUTH DAILY AT 0800 omeprazole 20 mg capsule,delayed release(DR/EC) 20 mg PO QDAY buspirone 15 mg tablet 15 mg PO TID calcium carbonate-vitamin D3 600 mg-10 mcg (400 unit) tablet 1 tab PO BID levocetirizine 5 mg tablet 5 mg PO HS fluvoxamine 100 mg tablet 100 mg PO BID triamcinolone acetonide 0.1 % ointment 1 applic TOPICAL 4XD polyethylene glycol 3350 [ClearLax] 17 gram/dose powder 17 g PO DAILY melatonin 5 mg Tablet 5 mg PO HS PRN (Reason: Insomnia) Referrals: Dionte No MD [Primary Care Provider] - Patient/Caregiver Discharge Instructions Other Discharge Activity Instructions:: Discharge with hospice Cigar Bander recommendations noted below under diet instructions May return to the ED for any new or worsening conditions at any time Other Discharge Diet Instructions: Recommendations for outpatient (Bolus Feeds): Jevity 1.5 via PEG tube by bolus syringe: 8 oz (1 container) 4 times per day. Flush tube with 30 ml water before and after feeds. Water flushes 100 ml every 4 hours. Provides: 1420 kcal, 60 g prot, 720 ml free water, 948 ml total volume. If Jevity 1.5 is not covered by insurance, consider these alternatives: 1. Isosource 1.5 via PEG tube by bolus syringe: 8 oz (1 container) 4 times per day. Flush tube with 30 ml water before and after feeds. Water flushes 100 ml every 4 hours. Provides: 1500 kcal, 68 g prot, 764 ml free water, 1000 ml total volume. 2. [employer] Standard 1.4 via PEG tube by bolus syringe: 11 oz (1 container) 3 times per day. Flush tube with 30 ml water before and after feeds. Water flushes 100 ml every 4 hours. Provides: 1365 kcal, 60 g prot, 692 ml free water, 975 ml total volume. -Jevity 1.5 at 40 mL/h x 24 hours via PEG tube by pump (goal). If no IV fluids, water flushes 30 mL/h. -Thiamine 100 mg/day -Multivitamin/minerals Education Materials: Understanding PEG Tube Feeding Print Language: Greek Stand Alone Forms: [employer] Award Info., Patient Portal Info Letter Discharge Order Discharge Orders: Discharge (Routine); Ordered 10/15/24 Ordered By: Zulma Alcaraz Quality Discharge Quality Measures VTE prophylaxis MD Attestestation MD Attestation I have discussed and was present for the essential components of the discharge history, physical examination, diagnosis, and discharge treatment plan with the resident. I agree with the patient's discharge care as documented by the resident and amended herein by me. Leon Shea DO. Patient will be discharged back to his facility on hospice care. Hematuria has resolved, patient has completed a course of antibiotics for pneumonia. PEG tube placed, tube feeds started, patient tolerating well. Hypothermia was still an issue upon discharge, patient required multiple episodes of Juan hugger's on admission however the frequency was decreased after tube feeding started. 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 Patient will need heating blankets upon discharge with the facility can accommodate. I did discuss the case prior with Dr. Worrell who oversees the facility and patient's conservator ship. The patient was stable, tolerating tube feeds well and afebrile at time of discharge to hospice care. Although this document has been carefully reviewed, there may still be some phonetic and other typographical errors. These errors are purely grammatical due to imperfections in the software program and should not be construed in any way to compromise the substance of the patient's medical care during this visit.
[2024-10-27 06:45] LABS: Cortisol,total,LC/MS/MS* 12.8 mcg/dL
== END 2024-10-16 15:51 | disposition hospice, home (50) | DRG 922 ==
LOC: SERX 20:12 → S2NX 10-10 06:36 → S2SX 10-11 09:54 → S2NX 10-13 07:15 → S2SX 10-16 15:05 → S2NX 10-21 10:55 → S3NX 10-21 10:55 → S3SX 10-21 10:55 → SERHOLD 10-21 10:55
PROVIDERS: Nurse Practitioner Family; Specialist; Student in an Organized Health Care Education/Training Program; Admitting Provider Internal Medicine; Emergency Provider Emergency Medicine; PCP Family Medicine; Visit Provider Internal Medicine
PROC: 0DH63UZ Insertion of Feeding Device into Stomach, Percutaneous Approach (ICD-10-PCS; CPT 43246; principal; 2024-10-10 16:00)
DX: T68.XXXA Hypothermia, initial encounter (principal); J18.9 Pneumonia, unspecified organism; F73 Profound intellectual disabilities; E87.1 Hypo-osmolality and hyponatremia; E46 Unspecified protein-calorie malnutrition; R62.7 Adult failure to thrive; G40.909 Epilepsy, unspecified, not intractable, without status epilepticus; E16.2 Hypoglycemia, unspecified; R31.0 Gross hematuria; Z66 Do not resuscitate; D63.8 Anemia in other chronic diseases classified elsewhere; H54.8 Legal blindness, as defined in USA; K20.90 Esophagitis, unspecified without bleeding; E77.8 Other disorders of glycoprotein metabolism
CPT/HCPCS: 36415; 70450; 71045; 74018; 80048; 80053; 81001; 82533; 82550; 83605; 83615; 83690; 83735; 83880; 84100; 84145; 84443; 84484; 85025; 85610; 85730; 87040; 87086; 87811; 93005; 96365; 96367; 96372; 99285; A4649; J0456; J0696; J1200; J1643; J2250; J2470; J2543; J3010; J3411; J3475; J7030; J7050; J7121; A9270; J1644